=== PATIENT | female | born 1990 | race Caucasian/White ===

== ENCOUNTER 2016-05-12 13:39 | Inpatient (IN) | payer BC ==
[2016-05-12] MEDS ORDERED: Sodium Chloride 0.9% 10 ML Syringe IV PRN (14:12)
[2016-05-12] MEDS ORDERED: Penicillin G Potassium 5 MILLUNITS in Sodium Chloride 0.9% 100 ML IV ONE (14:15)
[2016-05-12] MEDS ORDERED: fentaNYL 100 MCG/2 ML SDV IVPUSH PRN (14:30)
[2016-05-12] MEDS ORDERED: Acetaminophen 325 MG Tab PO PRN (14:30)
[2016-05-12] MEDS ORDERED: Oxytocin 10 Units/1 ML SDV ONE (14:30)
[2016-05-12] MEDS ORDERED: Sodium Chloride 0.9% 10 ML Syringe FLUSH PRN (14:30)
[2016-05-12] MEDS ORDERED: Lidocaine 1% 50 ML MDV ONE (14:30)
[2016-05-12] MEDS ORDERED: Naloxone 0.4 MG/ML SDV ONE (14:30)
[2016-05-12] MEDS ORDERED: Ondansetron 4 MG Tab.DIS PO PRN (14:30)
--- NOTE | 2016-05-12 14:39 | PCM.LDHP ---
L&D History of Present Illness - General Date of Service: 05/12/16 (labor) Admit Problem/Dx: Patient Status Order with Admit Dx/Problem 05/12/16 14:30 Patient Status [ADT] Routine Admission Diagnosis/Problem Admission Diagnosis/Problem Source of Information: Patient History Limitations: Reports: No limitations - History of Present Illness Introduction:: This 25 year old presented with contractions. She is 38 5/7 weeks gestation with adequate care. [place] 05/21/16. Contractions were on and off all morning at 1230 this afternoon the contractions changed to fast and strong. She is GBS positive and knew she needed to come in for antibiotics. 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: : 2 Para: 1 LMP (Approximate): (CHIRAG 05/21/16) - Infectious Disease History Infectious Disease History: Reports: Chicken pox Social & Family History - Family History Oncologic: Reports: Breast - Tobacco Use Smoking Status *Q: Never Smoker Second Hand Smoke Exposure: No - Caffeine Use Caffeine Use: Reports: Soda Caffeine Use Comment: 1 soda per day - Recreational Drug Use Recreational Drug Use: No H&P Review of Systems - Review of Systems: Review Of Systems: See Below General: Reports: no symptoms HEENT: Reports: no symptoms Pulmonary: Reports: No Symptoms Cardiovascular: Reports: no symptoms Gastrointestinal: Reports: No symptoms Genitourinary: Reports: no symptoms Musculoskeletal: Reports: no symptoms Skin: Reports: no symptoms Psychiatric: Reports: no symptoms Neurological: Reports: No Symptoms Hematologic/Lymphatic: Reports: no symptoms Immunologic: Reports: no symptoms L&D Exam - Exam Exam: See Below - Vital Signs Weight: 156 lb - OB Specific Contraction Intensity: Strong movement: active heart tones: present heart tones per min: 145 Heart Rate (FHR) Variability: Moderate (6-25 bmp) Presentation: Vertex Estimated Weight: 7-8 pounds - Marie Score Marie Score Cervix Position: Anterior Marie Score Consistency: Soft Marie Score Effacement: >80% Marie Score Dilation: > 5 cm Marie Score 's Station: +1, +2 Marie Score Total: 13 - Exam General: alert, oriented HEENT: PERRLA, Mucosa moist & pink, Posterior pharynx clear Neck: supple Lungs: Clear to auscultation, Normal respiratory effort Cardiovascular: regular rate, regular rhythm Abdomen: normal bowel sounds Rectal Exam: Normal exam Genitourinary: Normal external exam, Cervical dilitation, Enlarged uterus Back Exam: normal inspection, full range of motion Extremities: normal inspection Skin: warm, dry Neurological: cranial nerves intact, reflexes equal bilateral Psychiatric: alert, normal affect, normal mood - Patient Data Lab Results last 24 hrs: Laboratory Results - last 24 hr 05/12/16 05/12/16 Range/Units 13:45 13:46 Urine Color Yellow Urine Appearance Clear Urine pH 6.0 (4.5-8.0) Ur Specific [place] 1.020 (1.008-1.030) Urine Protein Negative (NEGATIVE) mg/dL Urine Glucose (UA) Normal (NEGATIVE) mg/dL Urine Ketones Negative (NEGATIVE) mg/dL Urine Occult Blood Negative (NEGATIVE) Urine Nitrite Negative (NEGATIVE) Urine Bilirubin Negative (NEGATIVE) Urine Urobilinogen Normal (NORMAL) mg/dL Ur Leukocyte Esterase Negative (NEGATIVE) Urine RBC Not seen (0-5) Urine WBC 0-5 (0-5) Ur Epithelial Cells Few Amorphous Sediment Not seen Urine Bacteria Moderate Urine Mucus Few Urine Opiates Screen Negative (NEGATIVE) Ur Oxycodone Screen Negative (NEGATIVE) Urine Methadone Screen Negative (NEGATIVE) Ur Propoxyphene Screen Negative (NEGATIVE) Ur Barbiturates Screen Negative (NEGATIVE) Ur Tricyclics Screen Negative (NEGATIVE) Ur Phencyclidine Scrn Negative (NEGATIVE) Ur Amphetamine Screen Negative (NEGATIVE) U Methamphetamines Scrn Negative (NEGATIVE) Urine MDMA Screen Negative (NEGATIVE) U Benzodiazepines Scrn Negative (NEGATIVE) U Cocaine Metab Screen Negative (NEGATIVE) U Marijuana (THC) Screen Negative (NEGATIVE) - Problem List (1) Active labor at term SNOMED Code(s): 34645768 ICD Code: [id number] - Status: Acute Current Visit: Yes (2) SNOMED Code(s): 29677389 ICD Code: Z33.1 - STATE, INCIDENTAL Status: Acute Current Visit : Yes Qualifiers: Weeks of gestation: 38 weeks Qualified Code(s): Z3A.38 - 38 weeks gestation of Problem List Initiated/Reviewed/Updated: Yes Orders Last 24hrs: Active Orders 24 hr Category Date Time Status Patient Status [ADT] Routine ADT 05/12/16 14:30 Ordered Antiembolic Devices [RC] .Routine Care 05/12/16 14:31 Ordered Communication Order [RC] ASDIRECTED Care 05/12/16 14:30 Ordered Heart Tones [RC] PER UNIT ROUTINE Care 05/12/16 14:30 Ordered Notify Provider Vital Signs [RC] PRN Care 05/12/16 14:30 Ordered Notify Provider [RC] PRN Care 05/12/16 14:30 Ordered OB Check [OM.PC] Click to Edit Care 05/12/16 13:45 Ordered VTE/DVT Education [RC] Click to Edit Care 05/12/16 14:31 Ordered Vital Signs [RC] PER UNIT ROUTINE Care 05/12/16 14:30 Ordered CBC W/O DIFF,HEMOGRAM [HEME] Urgent Lab 05/12/16 14:30 Ordered Acetaminophen [Tylenol] Med 05/12/16 14:30 Ordered 650 mg PO Q4H PRN Ondansetron [Zofran ODT] Med 05/12/16 14:30 Ordered 4 mg PO Q4H PRN Penicillin G Potassium [Pfizerpen] 5 millunits Med 05/12/16 14:15 Active Sodium Chloride 0.9% [Normal Saline] 100 ml IV ONETIME Sodium Chloride 0.9% [Saline Flush] Med 05/12/16 14:30 Ordered 10 ml FLUSH ASDIRECTED PRN Sodium Chloride 0.9% [Saline Flush] Med 05/12/16 14:12 Active 10 ml IV ASDIRECTED PRN fentaNYL [Sublimaze] Med 05/12/16 14:30 Ordered 100 mcg IVPUSH Q1H PRN DVT/VTE Prophylaxis Reflex [OM.PC] Routine Oth 05/12/16 14:30 Ordered Saline Lock Insert [OM.PC] Routine Oth 05/12/16 14:30 Ordered Resuscitation Status Routine Resus Stat 05/12/16 14:30 Ordered Medication Orders Penicillin G Potassium 5 (millunits/ Sodium Chloride) 100 mls @ 100 mls/hr IV ONETIME ONE Stop: 05/12/16 15:14 Sodium Chloride (Saline Flush) 10 ml IV ASDIRECTED PRN PRN Reason: LINE MAINTENCE Assessment/Plan Comment:: 25 yr old 38 5/7 weeks, active labor, gbs pos, antibiotics infusing Plan for vaginal delivery soon
[2016-05-12] MEDS ORDERED: Lidocaine 1% 50 ML MDV INJECT ONE (14:42)
[2016-05-12] MEDS ORDERED: Lactated Ringers 1,000 ML IV SCH (14:45)
[2016-05-12] MEDS ORDERED: fentaNYL 100 MCG/2 ML SDV ONE (14:50)
[2016-05-12] MEDS ORDERED: Witch Hazel Medicated Pads 100/Jar TOP PRN (15:41)
[2016-05-12] MEDS ORDERED: Acetaminophen/oxyCODONE 325-5 MG Tab PO PRN (15:41)
[2016-05-12] MEDS ORDERED: Ibuprofen 600 MG Tab PO PRN (15:41)
[2016-05-12] MEDS ORDERED: Benzocaine 20% Top Spray 56 GM Bottle TOP PRN (15:41)
--- NOTE | 2016-05-12 15:54 | PCM.DEL ---
L & D Note - General Info Date of Service: 05/12/16 (delivery) Mother's Due Date: 05/21/16 - Delivery Note Labor: spontaneous Delivery Outcome: Livebirth Infant Delivery Method: Spontaneous Vaginal Delivery Presentation: Left Occiput Anterior (DOLLY) Nuchal cord: none Anesthesia Type: None Amniotic Fluid Description: Meconium stained Episiotomy Type: None Laceration: none Placenta: intact, spontaneous Cord: 3 vessels Estimated blood loss: 100 Resuscitation needed: No : bulb syringe, stimulated, warmed, warmer used Provider: Margaret Olson Score 1 min: 9 Score 5 min: 9 Score 10 min: 9 Second Stage Interventions: Reports: Encouragement Given, Pushing Effectively, Pushing, McRobert's Position Delivery Comments (Free Text/Narrative):: This 25 year old at 38 5/7 weeks gestation. Delivered a viable female infant over an intact perineum via in DOLLY position. Meconium was present. New born was vigorous at and cried spontaneously. She was placed on mother 's abdomen. where she was dried and stimulated. Mother and nose were bulb suctioned. She weights 6-13, Ht 19.8, Apgars 9,9,9. Three vessel cord. No nuchal cord. Placenta was expressed spontaneously intact, the active management of the third stage was used. No lacerations of the cervix, vagina. rectum or perineum. EBL 100cc Mother and baby to post and nursery in stable condition. Bottle baby. First stage 3280-7386 Second stage 4555-8272 Third stage 7960-7896 - General Info Date of Service: 05/12/16 (delivery) Admission Dx/Problem (Free Text): Patient Status Order with Admit Dx/Problem 05/12/16 14:30 Patient Status [ADT] Routine Admission Diagnosis/Problem Admission Diagnosis/Problem Functional Status: Reports: pain controlled - Review of Systems General: Reports: No Symptoms HEENT: Reports: no symptoms Pulmonary: Reports: no symptoms Cardiovascular: Reports: No Symptoms Gastrointestinal: Reports: No symptoms Genitourinary: Reports: no symptoms Musculoskeletal: Reports: no symptoms Skin: Reports: no symptoms Neurological: Reports: No Symptoms Psychiatric: Reports: no symptoms - Patient Data Vitals - most recent: Last Vital Signs Temp 97.2 F 05/12/16 14:20 Pulse 83 05/12/16 14:20 Resp 20 05/12/16 14:20 BP 97/68 05/12/16 14:20 Pulse Ox 98 05/12/16 14:20 Weight - most recent: 156 lb Lab Results last 24 hrs: Laboratory Results - last 24 hr 05/12/16 05/12/16 05/12/16 Range/Units 13:45 13:46 14:30 WBC 11.5 H (4.5-11.0) K/uL RBC 4.02 (3.30-5.50) M/uL Hgb 12.8 (12.0-15.0) g/dL Hct 37.9 (36.0-48.0) % MCV 94 (80-98) fL MCH 32 H (27-31) pg MCHC 34 (32-36) % Plt Count 202 (150-400) K/uL Urine Color Yellow Urine Appearance Clear Urine pH 6.0 (4.5-8.0) Ur Specific [place] 1.020 (1.008-1.030) Urine Protein Negative (NEGATIVE) mg/dL Urine Glucose (UA) Normal (NEGATIVE) mg/dL Urine Ketones Negative (NEGATIVE) mg/dL Urine Occult Blood Negative (NEGATIVE) Urine Nitrite Negative (NEGATIVE) Urine Bilirubin Negative (NEGATIVE) Urine Urobilinogen Normal (NORMAL) mg/dL Ur Leukocyte Esterase Negative (NEGATIVE) Urine RBC Not seen (0-5) Urine WBC 0-5 (0-5) Ur Epithelial Cells Few Amorphous Sediment Not seen Urine Bacteria Moderate Urine Mucus Few Urine Opiates Screen Negative (NEGATIVE) Ur Oxycodone Screen Negative (NEGATIVE) Urine Methadone Screen Negative (NEGATIVE) Ur Propoxyphene Screen Negative (NEGATIVE) Ur Barbiturates Screen Negative (NEGATIVE) Ur Tricyclics Screen Negative (NEGATIVE) Ur Phencyclidine Scrn Negative (NEGATIVE) Ur Amphetamine Screen Negative (NEGATIVE) U Methamphetamines Scrn Negative (NEGATIVE) Urine MDMA Screen Negative (NEGATIVE) U Benzodiazepines Scrn Negative (NEGATIVE) U Cocaine Metab Screen Negative (NEGATIVE) U Marijuana (THC) Screen Negative (NEGATIVE) Med Orders - Current: Current Medications Acetaminophen (Tylenol) 650 mg PO Q4H PRN PRN Reason: Pain (Mild 1-3) and fever Fentanyl (Sublimaze) 100 mcg IVPUSH Q1H PRN PRN Reason: Pain (moderate 4-6) Lactated Ringer's (Ringers, Lactated) 1,000 mls @ 125 mls/hr IV ASDIRECTED SUMMER Oxytocin/Sodium Chloride (Pitocin In Ns 20 Units/1,000 Ml) 20 unit in 1,000 mls @ 6 mls/hr IV TITRATE SUMMER; 2 MUNITS/MIN PRN Reason: Protocol Penicillin G Potassium 2.5 (millunits/ Sodium Chloride) 50 mls @ 100 mls/hr IV Q4H SUMMER Ondansetron HCl (Zofran Odt) 4 mg PO Q4H PRN PRN Reason: Nausea/Vomiting Sodium Chloride (Saline Flush) 10 ml IV ASDIRECTED PRN PRN Reason: LINE MAINTENCE Discontinued Medications Fentanyl (Sublimaze) Confirm Administered Dose 100 mcg .ROUTE .STK-MED ONE Stop: 05/12/16 14:51 Penicillin G Potassium 5 (millunits/ Sodium Chloride) 100 mls @ 100 mls/hr IV ONETIME ONE Stop: 05/12/16 15:14 Last Admin: 05/12/16 14:40 Dose: 100 mls/hr Lidocaine HCl (Xylocaine 1%) Confirm Administered Dose 100 ml .ROUTE .STK-MED ONE Stop: 05/12/16 14:31 Lidocaine HCl (Xylocaine 1%) 50 ml INJECT NOW ONE Stop: 05/12/16 14:43 Naloxone HCl (Narcan) Confirm Administered Dose 0.4 mg .ROUTE .STK-MED ONE Stop: 05/12/16 14:31 Oxytocin (Pitocin) Confirm Administered Dose 10 unit .ROUTE .STK-MED ONE Stop: 05/12/16 14:31 - Exam General: alert, oriented HEENT: Pupils equal, Pupils reactive, EOMI, Mucous membr. moist/pink Neck: supple Lungs: Clear to auscultation, Normal respiratory effort Cardiovascular: Regular Rate, Regular Rhythm Abdomen: bowel sounds present, soft, no tenderness, no distension (Female) Exam: Normal external exam, Normal speculum exam, Normal bimanual exam, Enlarged uterus, Vaginal bleeding Back Exam: normal inspection, full range of motion Extremities: no edema Skin: warm, dry, intact Wound/Incisions: healing well Neurological: no new focal deficit Psy/Mental Status: alert, normal affect, normal mood - Problem List & Annotations (1) Active labor at term SNOMED Code(s): 94595528 Code(s): BQY7440 - Status: Acute Current Visit: Yes (2) SNOMED Code(s): 55009146 Code(s): Z33.1 - STATE, INCIDENTAL Status: Acute Current Visit: Yes Qualifiers: Weeks of gestation: 38 weeks Qualified Code(s): Z3A.38 - 38 weeks gestation of (3) Normal labor and delivery SNOMED Code(s): 53317074, 118192687 Code(s): O80 - ENCOUNTER FOR FULL-TERM UNCOMPLICATED DELIVERY Status: Acute Current Visit: Yes (4) GBS (group B streptococcus) infection SNOMED Code(s): 198605732 Code(s): A49.1 - STREPTOCOCCAL INFECTION, UNSPECIFIED SITE Status: Acute Current Visit: Yes (5) Meconium in amniotic fluid SNOMED Code(s): 1964955 Code(s): P96.83 - MECONIUM STAINING Status: Acute Current Visit: Yes - Problem List Review Problem List Initiated/Reviewed/Updated: Yes - My Orders Last 24 Hours: My Active Orders 05/12/16 13:45 OB Check [OM.PC] Click to Edit 05/12/16 14:12 Sodium Chloride 0.9% [Saline Flush] 10 ml IV ASDIRECTED PRN 05/12/16 14:30 Communication Order [RC] ASDIRECTED Heart Tones [RC] PER UNIT ROUTINE Notify Provider Vital Signs [RC] PRN Notify Provider [RC] PRN Vital Signs [RC] PER UNIT ROUTINE Acetaminophen [Tylenol] 650 mg PO Q4H PRN Ondansetron [Zofran ODT] 4 mg PO Q4H PRN fentaNYL [Sublimaze] 100 mcg IVPUSH Q1H PRN DVT/VTE Prophylaxis Reflex [OM.PC] Routine Saline Lock Insert [OM.PC] Routine Resuscitation Status Routine 05/12/16 14:31 Antiembolic Devices [RC] .Routine VTE/DVT Education [RC] Click to Edit 05/12/16 14:45 Lactated Ringers [Ringers, Lactated] 1,000 ml IV ASDIRECTED Oxytocin/Normal Saline [Pitocin in NS 20 Units/1,000 ML] 20 unit in 1,000 ml IV TITRATE 05/12/16 15:41 Patient Status [ADT] Routine May Shower [RC] ASDIRECTED Up ad Kaylene [RC] ASDIRECTED Vital Signs [RC] PFP RHIG WORKUP, [BBK] Routine Acetaminophen/oxyCODONE [Percocet 325-5 MG] 1 tab PO Q4H PRN Benzocaine [[id number]-Mgrbbrm 20% [place]] See Dose Instructions TOP Q4H PRN Ibuprofen [Motrin] 600 mg PO Q6H PRN Witch Kathy [Tucks] 1 pad TOP ASDIRECTED PRN Assess Lochia [WOMSER] Per Unit Routine Assess Uterine Involution [WOMSER] Per Unit Routine 05/12/16 15:43 Ice Therapy [OM.PC] Per Unit Routine Perineal Care [OM.PC] Per Unit Routine Peripheral IV Discontinue [OM.PC] Routine Sitz Bath [OM.PC] Per Unit Routine 05/12/16 18:00 Penicillin G Potassium [Pfizerpen] 2.5 millunits Sodium Chloride 0.9% [Normal Saline] 50 ml IV Q4H 05/12/16 Dinner Regular Diet [DIET] 05/13/16 05:11 CBC WITH AUTO DIFF [HEME] AM - Assessment Assessment:: 05/12/16 25 year old G2 now P2 without complications Mecomium present in fluid, baby vigorous at GBS positive, treated Formula feeding - Plan Plan:: 25 yr old 38 5/7 weeks, active labor, gbs pos, antibiotics infusing Plan for vaginal delivery soon 05/12/16 Routine cares 48 hour stay due to GBS positive status
[2016-05-12] MEDS ORDERED: Penicillin G Potassium 2.5 MILLUNITS in Sodium Chloride 0.9% 50 ML IV SCH (18:00)
--- NOTE | 2016-05-13 09:47 | PCM.PNPP ---
- General Info Date of Service: 05/13/16 Admission Dx/Problem (Free Text): Patient Status Order with Admit Dx/Problem 05/12/16 14:30 Patient Status [ADT] Routine Admission Diagnosis/Problem Admission Diagnosis/Problem Functional Status: Reports: pain controlled - Review of Systems General: Reports: No Symptoms HEENT: Reports: no symptoms Pulmonary: Reports: no symptoms Cardiovascular: Reports: No Symptoms Gastrointestinal: Reports: No symptoms Genitourinary: Reports: no symptoms Musculoskeletal: Reports: no symptoms Skin: Reports: no symptoms Neurological: Reports: No Symptoms Psychiatric: Reports: no symptoms - General Info Date of Service: 05/13/16 (PPD 1) - Patient Data Vital Signs - most recent: Last Vital Signs Temp 97.7 F 05/13/16 08:31 Pulse 82 05/13/16 08:31 Resp 20 05/13/16 08:31 BP 82/52 L 05/13/16 03:18 Pulse Ox 99 05/13/16 08:31 Weight - most recent: 156 lb I&O - last 24 hours: Intake & Output 05/12/16 05/13/16 05/13/16 22:59 06:59 14:59 Intake Total 1000 Balance 1000 Lab Results - last 24 hrs: Laboratory Results - last 24 hr 05/12/16 05/12/16 05/12/16 Range/Units 13:45 13:46 14:30 WBC 11.5 H (4.5-11.0) K/uL RBC 4.02 (3.30-5.50) M/uL Hgb 12.8 (12.0-15.0) g/dL Hct 37.9 (36.0-48.0) % MCV 94 (80-98) fL MCH 32 H (27-31) pg MCHC 34 (32-36) % Plt Count 202 (150-400) K/uL Neut % (Auto) (36-66) % Lymph % (Auto) (24-44) % [place] % (Auto) (2-6) % Eos % (Auto) (2-4) % Baso % (Auto) (0-1) % Urine Color Yellow Urine Appearance Clear Urine pH 6.0 (4.5-8.0) Ur Specific [place] 1.020 (1.008-1.030) Urine Protein Negative (NEGATIVE) mg/dL Urine Glucose (UA) Normal (NEGATIVE) mg/dL Urine Ketones Negative (NEGATIVE) mg/dL Urine Occult Blood Negative (NEGATIVE) Urine Nitrite Negative (NEGATIVE) Urine Bilirubin Negative (NEGATIVE) Urine Urobilinogen Normal (NORMAL) mg/dL Ur Leukocyte Esterase Negative (NEGATIVE) Urine RBC Not seen (0-5) Urine WBC 0-5 (0-5) Ur Epithelial Cells Few Amorphous Sediment Not seen Urine Bacteria Moderate Urine Mucus Few Urine Opiates Screen Negative (NEGATIVE) Ur Oxycodone Screen Negative (NEGATIVE) Urine Methadone Screen Negative (NEGATIVE) Ur Propoxyphene Screen Negative (NEGATIVE) Ur Barbiturates Screen Negative (NEGATIVE) Ur Tricyclics Screen Negative (NEGATIVE) Ur Phencyclidine Scrn Negative (NEGATIVE) Ur Amphetamine Screen Negative (NEGATIVE) U Methamphetamines Scrn Negative (NEGATIVE) Urine MDMA Screen Negative (NEGATIVE) U Benzodiazepines Scrn Negative (NEGATIVE) U Cocaine Metab Screen Negative (NEGATIVE) U Marijuana (THC) Screen Negative (NEGATIVE) 05/13/16 Range/Units 05:39 WBC 13.6 H (4.5-11.0) K/uL RBC 3.82 (3.30-5.50) M/uL Hgb 12.3 (12.0-15.0) g/dL Hct 36.7 (36.0-48.0) % MCV 96 (80-98) fL MCH 32 H (27-31) pg MCHC 34 (32-36) % Plt Count 182 (150-400) K/uL Neut % (Auto) 65 (36-66) % Lymph % (Auto) 24 (24-44) % [place] % (Auto) 10 H (2-6) % Eos % (Auto) 1 L (2-4) % Baso % (Auto) 0 (0-1) % Urine Color Urine Appearance Urine pH (4.5-8.0) Ur Specific [place] (1.008-1.030) Urine Protein (NEGATIVE) mg/dL Urine Glucose (UA) (NEGATIVE) mg/dL Urine Ketones (NEGATIVE) mg/dL Urine Occult Blood (NEGATIVE) Urine Nitrite (NEGATIVE) Urine Bilirubin (NEGATIVE) Urine Urobilinogen (NORMAL) mg/dL Ur Leukocyte Esterase (NEGATIVE) Urine RBC (0-5) Urine WBC (0-5) Ur Epithelial Cells Amorphous Sediment Urine Bacteria Urine Mucus Urine Opiates Screen (NEGATIVE) Ur Oxycodone Screen (NEGATIVE) Urine Methadone Screen (NEGATIVE) Ur Propoxyphene Screen (NEGATIVE) Ur Barbiturates Screen (NEGATIVE) Ur Tricyclics Screen (NEGATIVE) Ur Phencyclidine Scrn (NEGATIVE) Ur Amphetamine Screen (NEGATIVE) U Methamphetamines Scrn (NEGATIVE) Urine MDMA Screen (NEGATIVE) U Benzodiazepines Scrn (NEGATIVE) U Cocaine Metab Screen (NEGATIVE) U Marijuana (THC) Screen (NEGATIVE) Med Orders - Current: Current Medications Acetaminophen (Tylenol) 650 mg PO Q4H PRN PRN Reason: Pain (Mild 1-3) and fever Benzocaine (Ddlo-D-Borbnnp 20% [place]) 0 gm TOP Q4H PRN PRN Reason: Perineal Comfort Measure Docusate Sodium (Colace) 100 mg PO DAILY PRN PRN Reason: Constipation Lactated Ringer's (Ringers, Lactated) 1,000 mls @ 125 mls/hr IV ASDIRECTED SUMMER Ibuprofen (Motrin) 600 mg PO Q6H PRN PRN Reason: mild pain or fever Last Admin: 05/12/16 19:20 Dose: 600 mg Ondansetron HCl (Zofran Odt) 4 mg PO Q4H PRN PRN Reason: Nausea/Vomiting Oxycodone/Acetaminophen (Percocet 325-5 Mg) 1 tab PO Q4H PRN PRN Reason: Pain (moderate 4-6) Sodium Chloride (Saline Flush) 10 ml IV ASDIRECTED PRN PRN Reason: LINE MAINTENCE Zehra Kathy (Tucks) 1 pad TOP ASDIRECTED PRN PRN Reason: Hemorrhoids Discontinued Medications Fentanyl (Sublimaze) 100 mcg IVPUSH Q1H PRN PRN Reason: Pain (moderate 4-6) Fentanyl (Sublimaze) Confirm Administered Dose 100 mcg .ROUTE .STK-MED ONE Stop: 05/12/16 14:51 Last Admin: 05/12/16 17:34 Dose: 100 mcg Penicillin G Potassium 5 (millunits/ Sodium Chloride) 100 mls @ 100 mls/hr IV ONETIME ONE Stop: 05/12/16 15:14 Last Admin: 05/12/16 14:40 Dose: 100 mls/hr Oxytocin/Sodium Chloride (Pitocin In Ns 20 Units/1,000 Ml) 20 unit in 1,000 mls @ 6 mls/hr IV TITRATE SUMMER; 2 MUNITS/MIN PRN Reason: Protocol Last Admin: 05/12/16 18:01 Dose: 2 munits/min, 6 mls/hr Penicillin G Potassium 2.5 (millunits/ Sodium Chloride) 50 mls @ 100 mls/hr IV Q4H SUMMER Last Admin: 05/12/16 20:24 Dose: Not Given Lidocaine HCl (Xylocaine 1%) Confirm Administered Dose 100 ml .ROUTE .STK-MED ONE Stop: 05/12/16 14:31 Last Admin: 05/12/16 17:29 Dose: Not Given Lidocaine HCl (Xylocaine 1%) 50 ml INJECT NOW ONE Stop: 05/12/16 14:43 Last Admin: 05/12/16 17:29 Dose: Not Given Naloxone HCl (Narcan) Confirm Administered Dose 0.4 mg .ROUTE .STK-MED ONE Stop: 05/12/16 14:31 Last Admin: 05/12/16 17:29 Dose: Not Given Oxytocin (Pitocin) Confirm Administered Dose 10 unit .ROUTE .STK-MED ONE Stop: 05/12/16 14:31 Last Admin: 05/12/16 17:29 Dose: Not Given - Infant Interaction Infant Disposition, : [place] in Room with Family Interaction: Holding Feeding: Bottle Fed Infant Support Person: - Recovery Exam Fundal Tone: Firm Fundal Level: 2 Fingerbreadths Below Umbilicus Fundal Placement: Midline Lochia Amount: Small Lochia Color: Rubra/Red Perineum Description: Intact, Minimal Bruising/Swelling Episiotomy/Laceration: None Bladder Status: Voiding Urinary Elimination: Voided - Exam General: alert, oriented HEENT: Pupils equal Neck: supple Lungs: Clear to auscultation, Normal respiratory effort Cardiovascular: Regular Rate, Regular Rhythm Abdomen: bowel sounds present, soft, no tenderness, no distension Extremities: no edema Skin: warm, dry, intact Wound/Incisions: healing well Neurological: no new focal deficit Psy/Mental Status: alert, normal affect, normal mood - Problem List & Annotations (1) Active labor at term SNOMED Code(s): 35287251 Code(s): VJD4159 - Status: Acute Current Visit: Yes (2) SNOMED Code(s): 87254634 Code(s): Z33.1 - STATE, INCIDENTAL Status: Acute Current Visit: Yes Qualifiers: Weeks of gestation: 38 weeks Qualified Code(s): Z3A.38 - 38 weeks gestation of (3) Normal labor and delivery SNOMED Code(s): 37335176, 434032954 Code(s): O80 - ENCOUNTER FOR FULL-TERM UNCOMPLICATED DELIVERY Status: Acute Current Visit: Yes (4) GBS (group B streptococcus) infection SNOMED Code(s): 363854278 Code(s): A49.1 - STREPTOCOCCAL INFECTION, UNSPECIFIED SITE Status: Acute Current Visit: Yes (5) Meconium in amniotic fluid SNOMED Code(s): 2842505 Code(s): P96.83 - MECONIUM STAINING Status: Acute Current Visit: Yes - Problem List Review Problem List Initiated/Reviewed/Updated: Yes - My Orders Last 24 Hours: My Active Orders 05/12/16 13:45 OB Check [OM.PC] Click to Edit 05/12/16 14:12 Sodium Chloride 0.9% [Saline Flush] 10 ml IV ASDIRECTED PRN 05/12/16 14:30 Communication Order [RC] ASDIRECTED Notify Provider Vital Signs [RC] PRN Notify Provider [RC] PRN Vital Signs [RC] PER UNIT ROUTINE Acetaminophen [Tylenol] 650 mg PO Q4H PRN Ondansetron [Zofran ODT] 4 mg PO Q4H PRN DVT/VTE Prophylaxis Reflex [OM.PC] Routine Saline Lock Insert [OM.PC] Routine Resuscitation Status Routine 05/12/16 14:31 Antiembolic Devices [RC] .Routine VTE/DVT Education [RC] Click to Edit 05/12/16 14:45 Lactated Ringers [Ringers, Lactated] 1,000 ml IV ASDIRECTED 05/12/16 15:41 Patient Status [ADT] Routine May Shower [RC] ASDIRECTED Up ad Kaylene [RC] ASDIRECTED Acetaminophen/oxyCODONE [Percocet 325-5 MG] 1 tab PO Q4H PRN Benzocaine [Rotq-H-Afgwpii 20% [place]] See Dose Instructions TOP Q4H PRN Ibuprofen [Motrin] 600 mg PO Q6H PRN Witch Kathy [Tucks] 1 pad TOP ASDIRECTED PRN Assess Lochia [WOMSER] Per Unit Routine Assess Uterine Involution [WOMSER] Per Unit Routine 05/12/16 15:43 Ice Therapy [OM.PC] Per Unit Routine Perineal Care [OM.PC] Per Unit Routine Peripheral IV Discontinue [OM.PC] Routine Sitz Bath [OM.PC] Per Unit Routine 05/12/16 Dinner Regular Diet [DIET] 05/13/16 09:33 Docusate Sodium [Colace] 100 mg PO DAILY PRN - Assessment Assessment:: 05/12/16 25 year old G2 now P2 without complications Mecomium present in fluid, baby vigorous at GBS positive, treated Formula feeding 05/13/16 Doing well, bleeding light, mood good, some mild cramping HGB 12.3 No fever or elevated WBC - Plan Plan:: 25 yr old 38 5/7 weeks, active labor, gbs pos, antibiotics infusing Plan for vaginal delivery soon 05/12/16 Routine cares 48 hour stay due to GBS positive status 05/13/16 Routine cares Home in am, due to GBS status
[2016-05-13] MEDS: Docusate Sodium 100 MG Cap PO PRN (10:07)
[2016-05-14] MEDS: Docusate Sodium 100 MG Cap PO PRN (03:39)
--- NOTE | 2016-05-14 08:17 | PCM.PNPP ---
- General Info Date of Service: 05/14/16 (PPD 2 D/C) Admission Dx/Problem (Free Text): Patient Status Order with Admit Dx/Problem 05/12/16 14:30 Patient Status [ADT] Routine Admission Diagnosis/Problem Admission Diagnosis/Problem Functional Status: Reports: pain controlled - Review of Systems General: Reports: No Symptoms HEENT: Reports: no symptoms Pulmonary: Reports: no symptoms Cardiovascular: Reports: No Symptoms Gastrointestinal: Reports: No symptoms Genitourinary: Reports: no symptoms Musculoskeletal: Reports: no symptoms Skin: Reports: no symptoms Neurological: Reports: No Symptoms Psychiatric: Reports: no symptoms - General Info Date of Service: 05/14/16 - Patient Data Vital Signs - most recent: Last Vital Signs Temp 96.7 F 05/14/16 03:42 Pulse 65 05/14/16 03:42 Resp 14 05/14/16 03:42 BP 96/65 05/14/16 03:42 Pulse Ox 95 05/14/16 03:42 Weight - most recent: 156 lb Med Orders - Current: Current Medications Acetaminophen (Tylenol) 650 mg PO Q4H PRN PRN Reason: Pain (Mild 1-3) and fever Benzocaine (Hvfc-D-Nocride 20% [place]) 0 gm TOP Q4H PRN PRN Reason: Perineal Comfort Measure Docusate Sodium (Colace) 100 mg PO DAILY PRN PRN Reason: Constipation Last Admin: 05/14/16 03:39 Dose: 100 mg Lactated Ringer's (Ringers, Lactated) 1,000 mls @ 125 mls/hr IV ASDIRECTED SUMMER Ibuprofen (Motrin) 600 mg PO Q6H PRN PRN Reason: mild pain or fever Last Admin: 05/12/16 19:20 Dose: 600 mg Ondansetron HCl (Zofran Odt) 4 mg PO Q4H PRN PRN Reason: Nausea/Vomiting Oxycodone/Acetaminophen (Percocet 325-5 Mg) 1 tab PO Q4H PRN PRN Reason: Pain (moderate 4-6) Sodium Chloride (Saline Flush) 10 ml IV ASDIRECTED PRN PRN Reason: LINE MAINTENCE Witch Kathy (Tucks) 1 pad TOP ASDIRECTED PRN PRN Reason: Hemorrhoids Discontinued Medications Fentanyl (Sublimaze) 100 mcg IVPUSH Q1H PRN PRN Reason: Pain (moderate 4-6) Fentanyl (Sublimaze) Confirm Administered Dose 100 mcg .ROUTE .STK-MED ONE Stop: 05/12/16 14:51 Last Admin: 05/12/16 17:34 Dose: 100 mcg Penicillin G Potassium 5 (millunits/ Sodium Chloride) 100 mls @ 100 mls/hr IV ONETIME ONE Stop: 05/12/16 15:14 Last Admin: 05/12/16 14:40 Dose: 100 mls/hr Oxytocin/Sodium Chloride (Pitocin In Ns 20 Units/1,000 Ml) 20 unit in 1,000 mls @ 6 mls/hr IV TITRATE SUMMER; 2 MUNITS/MIN PRN Reason: Protocol Last Admin: 05/12/16 18:01 Dose: 2 munits/min, 6 mls/hr Penicillin G Potassium 2.5 (millunits/ Sodium Chloride) 50 mls @ 100 mls/hr IV Q4H SUMMER Last Admin: 05/12/16 20:24 Dose: Not Given Lidocaine HCl (Xylocaine 1%) Confirm Administered Dose 100 ml .ROUTE .STK-MED ONE Stop: 05/12/16 14:31 Last Admin: 05/12/16 17:29 Dose: Not Given Lidocaine HCl (Xylocaine 1%) 50 ml INJECT NOW ONE Stop: 05/12/16 14:43 Last Admin: 05/12/16 17:29 Dose: Not Given Naloxone HCl (Narcan) Confirm Administered Dose 0.4 mg .ROUTE .STK-MED ONE Stop: 05/12/16 14:31 Last Admin: 05/12/16 17:29 Dose: Not Given Oxytocin (Pitocin) Confirm Administered Dose 10 unit .ROUTE .STK-MED ONE Stop: 05/12/16 14:31 Last Admin: 05/12/16 17:29 Dose: Not Given - Interaction Disposition, : [place] in Room with Family Interaction: Holding Feeding: Bottle Fed Support Person: - Recovery Exam Fundal Tone: Firm Fundal Level: 2 Fingerbreadths Below Umbilicus Fundal Placement: Midline Lochia Amount: Small Lochia Color: Rubra/Red Perineum Description: Intact, Minimal Bruising/Swelling Episiotomy/Laceration: None Bladder Status: Voiding Urinary Elimination: Voided - Exam General: alert, oriented HEENT: Pupils equal Neck: supple Lungs: Clear to auscultation, Normal respiratory effort Cardiovascular: Regular Rate, Regular Rhythm Abdomen: bowel sounds present, soft, no tenderness, no distension Extremities: no edema Skin: warm, dry, intact Wound/Incisions: healing well Neurological: no new focal deficit Psy/Mental Status: alert, normal affect, normal mood - Problem List & Annotations (1) Active labor at term SNOMED Code(s): 28503731 Code(s): DMS2855 - Status: Acute Current Visit: Yes (2) SNOMED Code(s): 45719846 Code(s): Z33.1 - STATE, INCIDENTAL Status: Acute Current Visit: Yes Qualifiers: Weeks of gestation: 38 weeks Qualified Code(s): Z3A.38 - 38 weeks gestation of (3) Normal labor and delivery SNOMED Code(s): 09262905, 631959912 Code(s): O80 - ENCOUNTER FOR FULL-TERM UNCOMPLICATED DELIVERY Status: Acute Current Visit: Yes (4) GBS (group B streptococcus) infection SNOMED Code(s): 630289402 Code(s): A49.1 - STREPTOCOCCAL INFECTION, UNSPECIFIED SITE Status: Acute Current Visit: Yes (5) Meconium in amniotic fluid SNOMED Code(s): 7155849 Code(s): P96.83 - MECONIUM STAINING Status: Acute Current Visit: Yes - Problem List Review Problem List Initiated/Reviewed/Updated: Yes - My Orders Last 24 Hours: My Active Orders 05/13/16 09:33 Docusate Sodium [Colace] 100 mg PO DAILY PRN - Assessment Assessment:: 05/12/16 25 year old G2 now P2 without complications Mecomium present in fluid, baby vigorous at GBS positive, treated Formula feeding 05/13/16 Doing well, bleeding light, mood good, some mild cramping HGB 12.3 No fever or elevated WBC 05/15/15 Doing well, no problems ready for discharge - Plan Plan:: 25 yr old 38 5/7 weeks, active labor, gbs pos, antibiotics infusing Plan for vaginal delivery soon 05/12/16 Routine cares 48 hour stay due to GBS positive status 05/13/16 Routine cares Home in am, due to GBS status 05/14/16 Home today see me in 6 weeks
[2016-05-14 09:21] VITALS: BP 90/59
== END 2016-05-14 10:45 | disposition home or self-care (01) | DRG 560 ==
LOC: JP.OBCHECK 13:39 → JP.OB 14:06 → OBSVTOIN 15:17 → JP.MS 17:39
PROVIDERS: ADMIT Nurse Practitioner Family; ATTEND Nurse Practitioner Family
PROC: 10E0XZZ Delivery of Products of Conception, External Approach (ICD-10-PCS; principal; 2016-05-12)
DX: O77.0 Labor and delivery complicated by meconium in amniotic fluid (principal); O99.824 Streptococcus B carrier state complicating childbirth; Z3A.39 39 weeks gestation of pregnancy; Z37.0 Single live birth; O99.820 Streptococcus B carrier state complicating pregnancy
CPT/HCPCS: 36415; 80305; 81001; 85025; 85027; 99211; A9270-GY; J2540; J2590; J3010; J7030

== ENCOUNTER 2018-09-18 10:56 | Inpatient (IN) | payer BC ==
[2018-09-18] MEDS ORDERED: Acetaminophen 325 MG Tab PO PRN (11:57)
[2018-09-18] MEDS ORDERED: Sodium Chloride 0.9% 10 ML Syringe FLUSH PRN (11:57)
[2018-09-18] MEDS ORDERED: Ondansetron 4 MG/2 ML SDV IV PRN (11:57)
[2018-09-18] MEDS ORDERED: Penicillin G Potassium 5 MILLUNITS in Sodium Chloride 0.9% 50 ML IV ONE (12:00)
[2018-09-18] MEDS ORDERED: Lactated Ringers 1,000 ML IV ONE (12:03)
[2018-09-18] MEDS ORDERED: ePHEDrine 50 MG/ML SDV IVPUSH PRN (12:03)
--- NOTE | 2018-09-18 12:09 | PCM.LDHP ---
L&D History of Present Illness - General Date of Service: 09/18/18 Admit Problem/Dx: Patient Status Order with Admit Dx/Problem 09/18/18 11:57 Patient Status [ADT] Routine Admission Diagnosis/Problem Admission Diagnosis/Problem - Related Data Allergies/Adverse Reactions: Allergies Allergy/AdvReac Type Severity Reaction Status Date / Time No Known Allergies Allergy Verified 05/12/16 14:09 Past Medical History [employer] History: Reports: - Infectious Disease History Infectious Disease History: Reports: Chicken Pox Social & Family History - Family History Oncologic: Reports: Breast - Caffeine Use Caffeine Use: Reports: Soda Caffeine Use Comment: 1 soda per day H&P Review of Systems - Review of Systems: Review Of Systems: See Below General: Reports: No Symptoms HEENT: Reports: No Symptoms Pulmonary: Reports: No Symptoms Cardiovascular: Reports: No Symptoms Gastrointestinal: Reports: No Symptoms Genitourinary: Reports: No Symptoms Musculoskeletal: Reports: No Symptoms Skin: Reports: No Symptoms Psychiatric: Reports: No Symptoms Neurological: Reports: No Symptoms Hematologic/Lymphatic: Reports: No Symptoms Immunologic: Reports: No Symptoms L&D Exam - Exam Exam: See Below - Vital Signs Vital Signs: Last Vital Signs Temp 35.8 C 09/18/18 11:29 Pulse 72 09/18/18 11:29 Resp 16 09/18/18 11:29 BP 104/71 09/18/18 11:29 Pulse Ox - OB Specific Contraction Intensity: Mild Movement: Active Heart Tones: Present Heart Rate (FHR) Variability: Moderate (6-25 bmp) Presentation: Vertex - Marie Score Marie Score Cervix Position: Anterior Marie Score Consistency: Soft Marie Score Effacement: >80% Marie Score Dilation: 3-4 cm Marie Score 's Station: -1 ,0 Marie Score Total: 11 - Exam General: Alert, Oriented HEENT: PERRLA, Conjunctiva Clear, EACs Clear, EOMI, Hearing Intact, Mucosa Moist & [place], Nares Patent, Normal Nasal Septum, Posterior Pharynx Clear, Pupils Equal, Pupils Reactive, TMs Clear Neck: Supple, Trachea Midline Lungs: Clear to Auscultation, Normal Respiratory Effort Cardiovascular: Regular Rate, Regular Rhythm GI/Abdominal Exam: Normal Bowel Sounds, Soft, Non-Tender, No Organomegaly, No Distention, No Abnormal Bruit, No Mass, Pelvis Stable Rectal Exam: Normal Exam, Normal Rectal Tone Genitourinary: Normal external exam, Normal bimanual exam, Normal speculum exam Back Exam: Normal Inspection, Full Range of Motion Extremities: Normal Inspection, Normal Range of Motion, Non-Tender, No Pedal Edema, Normal Capillary Refill Skin: Warm, Dry, Intact Neurological: Cranial Nerves Intact, Reflexes Equal Bilateral Psychiatric: Alert, Normal Affect, Normal Mood - Patient Data Lab Results Last 24 hrs: Laboratory Results - last 24 hr 09/18/18 09/18/18 09/18/18 Range/Units 11:21 11:21 11:28 WBC 9.2 (4.5-11.0) K/uL RBC 3.72 (3.30-5.50) M/uL Hgb 11.9 L (12.0-15.0) g/dL Hct 36.3 (36.0-48.0) % MCV 98 (80-98) fL MCH 32 H (27-31) pg MCHC 33 (32-36) % Plt Count 184 (150-400) K/uL Urine Color Yellow (YELLOW) Urine Appearance Clear (CLEAR) Urine pH 7.0 (5.0-8.0) Ur Specific [place] 1.020 (1.008-1.030) Urine Protein Negative (NEGATIVE) mg/dL Urine Glucose (UA) Normal (NEGATIVE) mg/dL Urine Ketones Negative (NEGATIVE) mg/dL Urine Occult Blood Negative (NEGATIVE) Urine Nitrite Negative (NEGATIVE) Urine Bilirubin Negative (NEGATIVE) Urine Urobilinogen 0.2 (0.2-1.0) EU/dL Ur Leukocyte Esterase Negative (NEGATIVE) Urine RBC Not seen (0-5) Urine WBC Not seen (0-5) Ur Epithelial Cells Few Amorphous Sediment Not seen Urine Bacteria Not seen Urine Mucus Not seen Urine Opiates Screen Negative (NEGATIVE) Ur Oxycodone Screen Negative (NEGATIVE) Urine Methadone Screen Negative (NEGATIVE) Ur Propoxyphene Screen Negative (NEGATIVE) Ur Barbiturates Screen Negative (NEGATIVE) Ur Tricyclics Screen Negative (NEGATIVE) Ur Phencyclidine Scrn Negative (NEGATIVE) Ur Amphetamine Screen Negative (NEGATIVE) U Methamphetamines Scrn Negative (NEGATIVE) Urine MDMA Screen Negative (NEGATIVE) U Benzodiazepines Scrn Negative (NEGATIVE) U Cocaine Metab Screen Negative (NEGATIVE) U Marijuana (THC) Screen Negative (NEGATIVE) Result Diagrams: 09/18/18 11:28 - Problem List (1) Elective induction of labor planned SNOMED Code(s): 235443909 ICD Code: UQL7508 - Status: Acute Current Visit: Yes (2) GBS (group B streptococcus) infection SNOMED Code(s): 613611006 ICD Code: A49.1 - STREPTOCOCCAL INFECTION, UNSPECIFIED SITE Status: Acute Current Visit: No (3) SNOMED Code(s): 46554574 ICD Code: Z33.1 - STATE, INCIDENTAL Status: Acute Current Visit : No Qualifiers: Weeks of gestation: 40 weeks Qualified Code(s): Z3A.40 - 40 weeks gestation of Problem List Initiated/Reviewed/Updated: Yes Orders Last 24hrs: Active Orders 24 hr Category Date Time Status Patient Status [ADT] Routine ADT 09/18/18 11:57 Ordered Ambulate [RC] PER UNIT ROUTINE Care 09/18/18 11:57 Ordered Communication Order [RC] ASDIRECTED Care 09/18/18 11:57 Ordered Communication Order [RC] ASDIRECTED Care 09/18/18 12:04 Ordered Communication Order [RC] Per Unit Routine Care 09/18/18 12:04 Ordered Communication Order [RC] Per Unit Routine Care 09/18/18 12:04 Ordered Communication Order [RC] Per Unit Routine Care 09/18/18 12:04 Ordered Communication Order [RC] Per Unit Routine Care 09/18/18 12:04 Ordered Dietary Supplements [RC] BIDMEALS Care 09/18/18 11:27 Active Heart Tones [RC] PER UNIT ROUTINE Care 09/18/18 11:57 Ordered Non Stress Test [RC] Click to Edit Care 09/18/18 11:57 Ordered Insert Urinary Catheter [OM.PC] ASDIRECTED Care 09/18/18 12:15 Ordered Local Anesthetic Infusion Pump [RC] ASDIRECTED Care 09/18/18 12:04 Ordered May Shower [RC] ASDIRECTED Care 09/18/18 11:57 Ordered Nitrous Oxide Delivery [RC] ASDIRECTED Care 09/18/18 12:04 Ordered Notify Provider Vital Signs [RC] PRN Care 09/18/18 11:57 Ordered Notify Provider [RC] PRN Care 09/18/18 11:57 Ordered Oxygen Therapy [RC] ASDIRECTED Care 09/18/18 12:04 Ordered PCEA Epidural [RC] ASDIRECTED Care 09/18/18 12:04 Ordered PCEA Epidural [RC] ASDIRECTED Care 09/18/18 12:04 Ordered Pulse Oximetry [RC] ASDIRECTED Care 09/18/18 12:04 Ordered Up ad Kaylene [RC] ASDIRECTED Care 09/18/18 11:57 Ordered Urinary Catheter Assessment [RC] ASDIRECTED Care 09/18/18 12:04 Ordered VTE/DVT Education [RC] DAILY Care 09/18/18 11:57 Ordered Verify Patient Consent Obtain [RC] ASDIRECTED Care 09/18/18 12:04 Ordered Vital Signs [RC] PER UNIT ROUTINE Care 09/18/18 11:57 Ordered Vital Signs [RC] PER UNIT ROUTINE Care 09/18/18 12:04 Ordered Regular Diet [DIET] Diet 09/18/18 Breakfast Ordered Acetaminophen [Tylenol] Med 09/18/18 11:57 Ordered 650 mg PO Q4H PRN Lactated Ringers [Ringers, Lactated] 1,000 ml Med 09/18/18 12:03 Ordered IV .BOLUS Ondansetron [Zofran] Med 09/18/18 11:57 Ordered 4 mg IV Q4H PRN Oxytocin/Normal Saline [Pitocin in NS 20 Units/1,000 ML Med 09/18/18 11:45 Active ] 20 unit in 1,000 ml IV TITRATE Penicillin G Potassium [Pfizerpen] 2.5 millunits Med 09/18/18 16:00 Active Sodium Chloride 0.9% [Normal Saline] 50 ml IV Q4H Penicillin G Potassium [Pfizerpen] 5 millunits Med 09/18/18 12:00 Active Sodium Chloride 0.9% [Normal Saline] 50 ml IV ONETIME Sodium Chloride 0.9% [Saline Flush] Med 09/18/18 11:57 Ordered 10 ml FLUSH ASDIRECTED PRN ePHEDrine [ePHEDrine sulfate] Med 09/18/18 12:03 Ordered 10 mg IVPUSH ASDIRECTED PRN DVT/VTE Prophylaxis Reflex [OM.PC] Routine Oth 09/18/18 11:57 Ordered Epidural Catheter Management [OM.PC] Urgent Oth 09/18/18 12:04 Ordered Medication Discontinuation Instructions [OM.PC] Routine Oth 09/18/18 12:04 Ordered Saline Lock Insert [OM.PC] Routine Oth 09/18/18 11:57 Ordered Resuscitation Status Routine Resus Stat 09/18/18 11:57 Ordered Medication Orders Acetaminophen (Tylenol) 650 mg PO Q4H PRN PRN Reason: Pain (Mild 1-3) and fever Ephedrine Sulfate (Ephedrine Sulfate) 10 mg IVPUSH ASDIRECTED PRN PRN Reason: Hypotension Penicillin G Potassium 5 (millunits/ Sodium Chloride) 50 mls @ 100 mls/hr IV ONETIME ONE Stop: 09/18/18 12:29 Last Admin: 09/18/18 11:35 Dose: 100 mls/hr Penicillin G Potassium 2.5 (millunits/ Sodium Chloride) 50 mls @ 100 mls/hr IV Q4H SUMMER Oxytocin/Sodium Chloride (Pitocin In Ns 20 Units/1,000 Ml) 20 unit in 1,000 mls @ 9 mls/hr IV TITRATE SUMMER; Protocol Last Admin: 09/18/18 11:56 Dose: 1 munits/min, 3 mls/hr Lactated Ringer's (Ringers, Lactated) 1,000 mls @ 999 mls/hr IV .BOLUS ONE Stop: 09/18/18 13:03 Ondansetron HCl (Zofran) 4 mg IV Q4H PRN PRN Reason: Nausea/Vomiting Sodium Chloride (Saline Flush) 10 ml FLUSH ASDIRECTED PRN PRN Reason: Keep Vein Open Assessment/Plan Comment:: 09/18/2018 27 yo here at 40 4/7 weeks gestation for an induction of labor Patient was seen in the clinic and was 4//-1 and is GBS positive with history of fast labors so asked to stay and be induced Labs-A positive, RPR nonreactive, Hep B neg, Hep C neg, HIV neg, GBS positive Plan- Continue to monitor for active labor Continue to monitor FHTs Start pitocin per protocol Start PCN G for GBS per protocol Pain management per patient request Plan and anticipate a vaginal delivery
[2018-09-18] MEDS ORDERED: Ibuprofen 200 MG Tab, 24 Tab Bulk Bottle PO PRN (15:11)
[2018-09-18] MEDS ORDERED: Acetaminophen 325 MG Tab, 50 Tab Bulk Bottle PO PRN (15:11)
[2018-09-18] MEDS ORDERED: Benzocaine 20% Top Spray 56 GM Bottle TOP PRN (15:15)
[2018-09-18] MEDS ORDERED: Witch Hazel Medicated Pads 100/Jar TOP SCH (15:15)
[2018-09-18] MEDS ORDERED: Penicillin G Potassium 2.5 MILLUNITS in Sodium Chloride 0.9% 50 ML IV SCH (16:00)
[2018-09-18] MEDS ORDERED: Lanolin 100% Cream 40 GM Tube TOP SCH (16:00)
--- NOTE | 2018-09-18 17:06 | PCM.DEL ---
L & D Note - General Info Date of Service: 09/18/18 Mother's Due Date: 09/14/18 - Delivery Note Labor: Augmented by Oxytocin Cervical Ripening Method: Oxytocin Delivery Outcome: Livebirth Delivery Method: Spontaneous Vaginal Delivery-Single Infant Delivery Mode: Spontaneous Presentation: Left Occiput Anterior (DOLLY) Nuchal Cord: Present, Reduced Anesthesia Type: Nitrous Oxide Amniotic Fluid Description: Clear Episiotomy Type: None Laceration: None Placenta: Intact, Spontaneous Cord: 3 Vessels Estimated Blood Loss: 200 Resuscitation Needed: No : Bulb Syringe, Stimulated, Warmed, [place] Used Score 1 min: 8 Score 5 min: 9 Second Stage Interventions: Reports: Second Nurse Assessed Progress of Descent, Second Nurse Reviewed Contraction Pattern, Second Nurse Reviewed Heart Tones, Encouragement Given, Pushing Effectively, Pushing, McRobert's Position Delivery Comments (Free Text/Narrative):: 09/18/2018 27 yo delivered a viable female at 40 4/7 gestational weeks on 09/18 at 1503 in DOLLY position over an intact perineum. Times one nuchal noted that was easily reduced. was delivered and placed on prewarmed blanket on mothers abdomen, delayed cord clamping was done for approximately 60 seconds , infant began to cry and pink in color. Cord was double clamped by provider and cut by father of . Infant then was dried, stimulated and warmed while skin to skin with mother. APGARS-8/9, weight-7lbs 0oz, length-19.7 inches. Placenta spontaneous and intact, three vessel cord. No lacerations noted of perineum, vagina, cervix, or rectum. EBL-200ml. now skin to skin with mother and both are stable in labor and delivery room Stages of labor- 1st [id number] 2nd [id number] 3rd [id number] - General Info Date of Service: 09/18/18 Admission Dx/Problem (Free Text): Patient Status Order with Admit Dx/Problem 09/18/18 11:57 Patient Status [ADT] Routine Admission Diagnosis/Problem Admission Diagnosis/Problem Functional Status: Reports: Pain Controlled - Review of Systems General: Reports: No Symptoms HEENT: Reports: No Symptoms Pulmonary: Reports: No Symptoms Cardiovascular: Reports: No Symptoms Gastrointestinal: Reports: No Symptoms Genitourinary: Reports: No Symptoms Musculoskeletal: Reports: No Symptoms Skin: Reports: No Symptoms Neurological: Reports: No Symptoms Psychiatric: Reports: No Symptoms - Patient Data Vitals - Most Recent: Last Vital Signs Temp 35.8 C 09/18/18 11:29 Pulse 101 H 09/18/18 15:00 Resp 20 09/18/18 15:00 BP 109/67 09/18/18 15:36 Pulse Ox 99 09/18/18 15:00 Weight - Most Recent: 73.2 kg I&O - Last 24 Hours: Intake & Output 09/18/18 09/18/18 09/18/18 06:59 14:59 22:59 Intake Total 1050 Balance 1050 Lab Results Last 24 Hours: Laboratory Results - last 24 hr 09/18/18 09/18/18 09/18/18 Range/Units 11:21 11:21 11:28 WBC 9.2 (4.5-11.0) K/uL RBC 3.72 (3.30-5.50) M/uL Hgb 11.9 L (12.0-15.0) g/dL Hct 36.3 (36.0-48.0) % MCV 98 (80-98) fL MCH 32 H (27-31) pg MCHC 33 (32-36) % Plt Count 184 (150-400) K/uL Urine Color Yellow (YELLOW) Urine Appearance Clear (CLEAR) Urine pH 7.0 (5.0-8.0) Ur Specific [place] 1.020 (1.008-1.030) Urine Protein Negative (NEGATIVE) mg/dL Urine Glucose (UA) Normal (NEGATIVE) mg/dL Urine Ketones Negative (NEGATIVE) mg/dL Urine Occult Blood Negative (NEGATIVE) Urine Nitrite Negative (NEGATIVE) Urine Bilirubin Negative (NEGATIVE) Urine Urobilinogen 0.2 (0.2-1.0) EU/dL Ur Leukocyte Esterase Negative (NEGATIVE) Urine RBC Not seen (0-5) Urine WBC Not seen (0-5) Ur Epithelial Cells Few Amorphous Sediment Not seen Urine Bacteria Not seen Urine Mucus Not seen Urine Opiates Screen Negative (NEGATIVE) Ur Oxycodone Screen Negative (NEGATIVE) Urine Methadone Screen Negative (NEGATIVE) Ur Propoxyphene Screen Negative (NEGATIVE) Ur Barbiturates Screen Negative (NEGATIVE) Ur Tricyclics Screen Negative (NEGATIVE) Ur Phencyclidine Scrn Negative (NEGATIVE) Ur Amphetamine Screen Negative (NEGATIVE) U Methamphetamines Scrn Negative (NEGATIVE) Urine MDMA Screen Negative (NEGATIVE) U Benzodiazepines Scrn Negative (NEGATIVE) U Cocaine Metab Screen Negative (NEGATIVE) U Marijuana (THC) Screen Negative (NEGATIVE) Med Orders - Current: Current Medications Acetaminophen (Tylenol Bulk Bottle) 325 - 650 mg PO Q4H PRN PRN Reason: Pain Benzocaine (Wirw-H-Wsojwwq 20% [place]) 0 gm TOP Q4H PRN PRN Reason: PERINEAL PAIN Emollient Ointment (Lansinoh Hpa) 0 gm TOP ASDIRECTED SUMMER Ephedrine Sulfate (Ephedrine Sulfate) 10 mg IVPUSH ASDIRECTED PRN PRN Reason: Hypotension Oxytocin/Sodium Chloride (Pitocin In Ns 20 Units/1,000 Ml) 20 unit in 1,000 mls @ 9 mls/hr IV TITRATE SUMMER; Protocol Last Titration: 09/18/18 15:03 Dose: 999 mls/hr Ibuprofen (Motrin Bulk Bottle) 600 mg PO Q6H PRN PRN Reason: Pain Ondansetron HCl (Zofran) 4 mg IV Q4H PRN PRN Reason: Nausea/Vomiting Sodium Chloride (Saline Flush) 10 ml FLUSH ASDIRECTED PRN PRN Reason: Keep Vein Open Witshantanu Chavez (Tucks) 1 pad TOP ASDIRECTED SUMMER Discontinued Medications Penicillin G Potassium 5 (millunits/ Sodium Chloride) 50 mls @ 100 mls/hr IV ONETIME ONE Stop: 09/18/18 12:29 Last Admin: 09/18/18 11:35 Dose: 100 mls/hr Penicillin G Potassium 2.5 (millunits/ Sodium Chloride) 50 mls @ 100 mls/hr IV Q4H SUMMER Lactated Ringer's (Ringers, Lactated) 1,000 mls @ 999 mls/hr IV .BOLUS ONE Stop: 09/18/18 13:03 Last Admin: 09/18/18 16:34 Dose: Not Given - Exam General: Alert, Oriented, Cooperative HEENT: Pupils Equal, Pupils Reactive, EOMI, Mucous Membr. Moist/[place] Neck: Supple Lungs: Clear to Auscultation, Normal Respiratory Effort Cardiovascular: Regular Rate, Regular Rhythm GI/Abdominal Exam: Normal Bowel Sounds, Soft, Non-Tender, No Organomegaly, No Distention, No Abnormal Bruit, No Mass, Pelvis Stable (Female) Exam: Normal External Exam, Normal Speculum Exam, Normal Bimanual Exam Back Exam: Normal Inspection, Full Range of Motion Extremities: Normal Inspection, Normal Range of Motion, Non-Tender, No Pedal Edema, Normal Capillary Refill Skin: Warm, Dry, Intact Neurological: No New Focal Deficit Psy/Mental Status: Alert, Normal Affect, Normal Mood - Problem List & Annotations (1) Elective induction of labor planned SNOMED Code(s): 111925481 Code(s): AFQ8592 - Status: Acute Current Visit: Yes (2) GBS (group B streptococcus) infection SNOMED Code(s): 102182296 Code(s): A49.1 - STREPTOCOCCAL INFECTION, UNSPECIFIED SITE Status: Acute Current Visit: No (3) SNOMED Code(s): 35070034 Code(s): Z33.1 - STATE, INCIDENTAL Status: Acute Current Visit: No Qualifiers: Weeks of gestation: 40 weeks Qualified Code(s): Z3A.40 - 40 weeks gestation of (4) Vaginal delivery SNOMED Code(s): 899136464 Code(s): O80 - ENCOUNTER FOR FULL-TERM UNCOMPLICATED DELIVERY Status: Acute Current Visit: Yes (5) Normal labor and delivery SNOMED Code(s): 02157314, 24287811 Code(s): O80 - ENCOUNTER FOR FULL-TERM UNCOMPLICATED DELIVERY Status: Acute Current Visit: No - Problem List Review Problem List Initiated/Reviewed/Updated: Yes - My Orders Last 24 Hours: My Active Orders 09/18/18 11:27 Dietary Supplements [RC] BIDMEALS 09/18/18 11:45 Oxytocin/Normal Saline [Pitocin in NS 20 Units/1,000 ML] 20 unit in 1,000 ml IV TITRATE 09/18/18 11:57 Patient Status [ADT] Routine Ambulate [RC] PER UNIT ROUTINE May Shower [RC] ASDIRECTED Notify Provider Vital Signs [RC] PRN Up ad Kaylene [RC] ASDIRECTED VTE/DVT Education [RC] DAILY Ondansetron [Zofran] 4 mg IV Q4H PRN Sodium Chloride 0.9% [Saline Flush] 10 ml FLUSH ASDIRECTED PRN DVT/VTE Prophylaxis Reflex [OM.PC] Routine Saline Lock Insert [OM.PC] Routine Resuscitation Status Routine 09/18/18 12:03 ePHEDrine [ePHEDrine sulfate] 10 mg IVPUSH ASDIRECTED PRN 09/18/18 12:04 Oxygen Therapy [RC] ASDIRECTED Epidural Catheter Management [OM.PC] Urgent Medication Discontinuation Instructions [OM.PC] Routine 09/18/18 12:15 Insert Urinary Catheter [OM.PC] ASDIRECTED 09/18/18 15:11 Acetaminophen [Tylenol Bulk Bottle] 325 - 650 mg PO Q4H PRN Ibuprofen [Motrin Bulk Bottle] 600 mg PO Q6H PRN Assess Lochia [WOMSER] Per Unit Routine Assess Uterine Involution [WOMSER] Per Unit Routine 09/18/18 15:12 Patient Status [ADT] Routine Vital Signs [RC] PFP Perineal Care [OM.PC] Per Unit Routine 09/18/18 15:15 Benzocaine [Tour-Q-Vaifkbt 20% [place]] See Dose Instructions TOP Q4H PRN Witch Kathy [Tucks] 1 pad TOP ASDIRECTED 09/18/18 16:00 Lanolin [Lansinoh HPA] 0 gm TOP ASDIRECTED 09/18/18 Breakfast Regular Diet [DIET] 09/19/18 06:00 CBC WITH AUTO DIFF [HEME] Routine - Assessment Assessment:: 09/18/2018 without complications Bottlefeeding GBS positive - Plan Plan:: 09/18/2018 27 yo here at 40 4/7 weeks gestation for an induction of labor Patient was seen in the clinic and was 4/90/-1 and is GBS positive with history of fast labors so asked to stay and be induced Labs-A positive, RPR nonreactive, Hep B neg, Hep C neg, HIV neg, GBS positive Plan- Continue to monitor for active labor Continue to monitor FHTs Start pitocin per protocol Start PCN G for GBS per protocol Pain management per patient request Plan and anticipate a vaginal delivery 09/18/2018 Routine cares Plan to discharge in 48 hours
--- NOTE | 2018-09-19 08:31 | PCM.PNPP ---
- General Info Date of Service: 09/19/18 Functional Status: Reports: Pain Controlled - Review of Systems General: Reports: No Symptoms HEENT: Reports: No Symptoms Pulmonary: Reports: No Symptoms Cardiovascular: Reports: No Symptoms Gastrointestinal: Reports: No Symptoms Genitourinary: Reports: No Symptoms Musculoskeletal: Reports: No Symptoms Skin: Reports: No Symptoms Neurological: Reports: No Symptoms Psychiatric: Reports: No Symptoms - General Info Date of Service: 09/19/18 - Patient Data Vital Signs - Most Recent: Last Vital Signs Temp 36.2 C 09/19/18 07:06 Pulse 73 09/19/18 07:06 Resp 16 09/19/18 07:06 BP 100/68 09/19/18 07:06 Pulse Ox 99 09/19/18 07:06 Weight - Most Recent: 73.2 kg I&O - Last 24 Hours: Intake & Output 09/18/18 09/19/18 09/19/18 22:59 06:59 14:59 Intake Total 1050 800 Balance 1050 800 Lab Results - Last 24 Hours: Laboratory Results - last 24 hr 09/18/18 09/18/18 09/18/18 Range/Units 11:21 11:21 11:28 WBC 9.2 (4.5-11.0) K/uL RBC 3.72 (3.30-5.50) M/uL Hgb 11.9 L (12.0-15.0) g/dL Hct 36.3 (36.0-48.0) % MCV 98 (80-98) fL MCH 32 H (27-31) pg MCHC 33 (32-36) % Plt Count 184 (150-400) K/uL Neut % (Auto) (36-66) % Lymph % (Auto) (24-44) % [place] % (Auto) (2-6) % Eos % (Auto) (2-4) % Baso % (Auto) (0-1) % Urine Color Yellow (YELLOW) Urine Appearance Clear (CLEAR) Urine pH 7.0 (5.0-8.0) Ur Specific [place] 1.020 (1.008-1.030) Urine Protein Negative (NEGATIVE) mg/dL Urine Glucose (UA) Normal (NEGATIVE) mg/dL Urine Ketones Negative (NEGATIVE) mg/dL Urine Occult Blood Negative (NEGATIVE) Urine Nitrite Negative (NEGATIVE) Urine Bilirubin Negative (NEGATIVE) Urine Urobilinogen 0.2 (0.2-1.0) EU/dL Ur Leukocyte Esterase Negative (NEGATIVE) Urine RBC Not seen (0-5) Urine WBC Not seen (0-5) Ur Epithelial Cells Few Amorphous Sediment Not seen Urine Bacteria Not seen Urine Mucus Not seen Urine Opiates Screen Negative (NEGATIVE) Ur Oxycodone Screen Negative (NEGATIVE) Urine Methadone Screen Negative (NEGATIVE) Ur Propoxyphene Screen Negative (NEGATIVE) Ur Barbiturates Screen Negative (NEGATIVE) Ur Tricyclics Screen Negative (NEGATIVE) Ur Phencyclidine Scrn Negative (NEGATIVE) Ur Amphetamine Screen Negative (NEGATIVE) U Methamphetamines Scrn Negative (NEGATIVE) Urine MDMA Screen Negative (NEGATIVE) U Benzodiazepines Scrn Negative (NEGATIVE) U Cocaine Metab Screen Negative (NEGATIVE) U Marijuana (THC) Screen Negative (NEGATIVE) 09/19/18 Range/Units 04:30 WBC 10.8 (4.5-11.0) K/uL RBC 3.34 (3.30-5.50) M/uL Hgb 10.8 L (12.0-15.0) g/dL Hct 33.1 L (36.0-48.0) % MCV 99 H (80-98) fL MCH 32 H (27-31) pg MCHC 33 (32-36) % Plt Count 182 (150-400) K/uL Neut % (Auto) 53 (36-66) % Lymph % (Auto) 35 (24-44) % [place] % (Auto) 11 H (2-6) % Eos % (Auto) 1 L (2-4) % Baso % (Auto) 0 (0-1) % Urine Color (YELLOW) Urine Appearance (CLEAR) Urine pH (5.0-8.0) Ur Specific [place] (1.008-1.030) Urine Protein (NEGATIVE) mg/dL Urine Glucose (UA) (NEGATIVE) mg/dL Urine Ketones (NEGATIVE) mg/dL Urine Occult Blood (NEGATIVE) Urine Nitrite (NEGATIVE) Urine Bilirubin (NEGATIVE) Urine Urobilinogen (0.2-1.0) EU/dL Ur Leukocyte Esterase (NEGATIVE) Urine RBC (0-5) Urine WBC (0-5) Ur Epithelial Cells Amorphous Sediment Urine Bacteria Urine Mucus Urine Opiates Screen (NEGATIVE) Ur Oxycodone Screen (NEGATIVE) Urine Methadone Screen (NEGATIVE) Ur Propoxyphene Screen (NEGATIVE) Ur Barbiturates Screen (NEGATIVE) Ur Tricyclics Screen (NEGATIVE) Ur Phencyclidine Scrn (NEGATIVE) Ur Amphetamine Screen (NEGATIVE) U Methamphetamines Scrn (NEGATIVE) Urine MDMA Screen (NEGATIVE) U Benzodiazepines Scrn (NEGATIVE) U Cocaine Metab Screen (NEGATIVE) U Marijuana (THC) Screen (NEGATIVE) Med Orders - Current: Current Medications Acetaminophen (Tylenol Bulk Bottle) 325 - 650 mg PO Q4H PRN PRN Reason: Pain Last Admin: 09/18/18 18:08 Dose: 1 bottle Benzocaine (Drjz-M-Ntjhywc 20% [place]) 0 gm TOP Q4H PRN PRN Reason: PERINEAL PAIN Last Admin: 09/18/18 18:07 Dose: 1 applic Emollient Ointment (Lansinoh Hpa) 0 gm TOP ASDIRECTED SUMMER Ephedrine Sulfate (Ephedrine Sulfate) 10 mg IVPUSH ASDIRECTED PRN PRN Reason: Hypotension Oxytocin/Sodium Chloride (Pitocin In Ns 20 Units/1,000 Ml) 20 unit in 1,000 mls @ 9 mls/hr IV TITRATE SUMMER; Protocol Last Titration: 09/18/18 15:03 Dose: 999 mls/hr Ibuprofen (Motrin Bulk Bottle) 600 mg PO Q6H PRN PRN Reason: Pain Last Admin: 09/18/18 18:07 Dose: 1 bottle Ondansetron HCl (Zofran) 4 mg IV Q4H PRN PRN Reason: Nausea/Vomiting Sodium Chloride (Saline Flush) 10 ml FLUSH ASDIRECTED PRN PRN Reason: Keep Vein Open Zehra Chavez ([place]) 1 pad TOP ASDIRECTED SUMMER Discontinued Medications Penicillin G Potassium 5 (millunits/ Sodium Chloride) 50 mls @ 100 mls/hr IV ONETIME ONE Stop: 09/18/18 12:29 Last Admin: 09/18/18 11:35 Dose: 100 mls/hr Penicillin G Potassium 2.5 (millunits/ Sodium Chloride) 50 mls @ 100 mls/hr IV Q4H SUMMER Lactated Ringer's (Ringers, Lactated) 1,000 mls @ 999 mls/hr IV .BOLUS ONE Stop: 09/18/18 13:03 Last Admin: 09/18/18 16:34 Dose: Not Given - Interaction Disposition, : [place] in Room with Family Interaction: Holding Infant Feeding: Bottle Fed Infant Support Person: - Recovery Exam Fundal Tone: Firm Fundal Level: 1 Fingerbreadths Below Umbilicus Fundal Placement: Midline Lochia Amount: Small Lochia Color: Rubra/Red Perineum Description: Intact, Minimal Bruising/Swelling Episiotomy/Laceration: None Bladder Status: Voiding Urinary Elimination: Voided - Exam General: Alert, Oriented, Cooperative HEENT: Pupils Equal Neck: Supple Lungs: Clear to Auscultation, Normal Respiratory Effort Cardiovascular: Regular Rate, Regular Rhythm GI/Abdominal Exam: Normal Bowel Sounds, Soft, Non-Tender, No Organomegaly, No Distention, No Abnormal Bruit, No Mass, Pelvis Stable Extremities: Normal Inspection, Normal Range of Motion, Non-Tender, No Pedal Edema, Normal Capillary Refill Skin: Warm, Dry, Intact Neurological: No New Focal Deficit Psy/Mental Status: Alert, Normal Affect, Normal Mood - Problem List & Annotations (1) Elective induction of labor planned SNOMED Code(s): 191875061 Code(s): CLF1628 - Status: Acute Current Visit: Yes (2) GBS (group B streptococcus) infection SNOMED Code(s): 253622439 Code(s): A49.1 - STREPTOCOCCAL INFECTION, UNSPECIFIED SITE Status: Acute Current Visit: No (3) SNOMED Code(s): 65355714 Code(s): Z33.1 - STATE, INCIDENTAL Status: Acute Current Visit: No Qualifiers: Weeks of gestation: 40 weeks Qualified Code(s): Z3A.40 - 40 weeks gestation of (4) Vaginal delivery SNOMED Code(s): 056628009 Code(s): O80 - ENCOUNTER FOR FULL-TERM UNCOMPLICATED DELIVERY Status: Acute Current Visit: Yes (5) Normal labor and delivery SNOMED Code(s): 62387495, 01050619 Code(s): O80 - ENCOUNTER FOR FULL-TERM UNCOMPLICATED DELIVERY Status: Acute Current Visit: No - Problem List Review Problem List Initiated/Reviewed/Updated: Yes - My Orders Last 24 Hours: My Active Orders 09/18/18 11:27 Dietary Supplements [RC] BIDMEALS 09/18/18 11:45 Oxytocin/Normal Saline [Pitocin in NS 20 Units/1,000 ML] 20 unit in 1,000 ml IV TITRATE 09/18/18 11:57 Patient Status [ADT] Routine Ambulate [RC] PER UNIT ROUTINE May Shower [RC] ASDIRECTED Notify Provider Vital Signs [RC] PRN Up ad Kaylene [RC] ASDIRECTED VTE/DVT Education [RC] DAILY Ondansetron [Zofran] 4 mg IV Q4H PRN Sodium Chloride 0.9% [Saline Flush] 10 ml FLUSH ASDIRECTED PRN DVT/VTE Prophylaxis Reflex [OM.PC] Routine Saline Lock Insert [OM.PC] Routine Resuscitation Status Routine 09/18/18 12:03 ePHEDrine [ePHEDrine sulfate] 10 mg IVPUSH ASDIRECTED PRN 09/18/18 12:04 Epidural Catheter Management [OM.PC] Urgent Medication Discontinuation Instructions [OM.PC] Routine 09/18/18 12:15 Insert Urinary Catheter [OM.PC] ASDIRECTED 09/18/18 15:11 Acetaminophen [Tylenol Bulk Bottle] 325 - 650 mg PO Q4H PRN Ibuprofen [Motrin Bulk Bottle] 600 mg PO Q6H PRN Assess Lochia [WOMSER] Per Unit Routine Assess Uterine Involution [WOMSER] Per Unit Routine 09/18/18 15:12 Patient Status [ADT] Routine Vital Signs [RC] PFP Perineal Care [OM.PC] Per Unit Routine 09/18/18 15:15 Benzocaine [Lyja-O-Veomekj 20% [place]] See Dose Instructions TOP Q4H PRN Witch Kathy [Tucks] 1 pad TOP ASDIRECTED 09/18/18 16:00 Lanolin [Lansinoh HPA] 0 gm TOP ASDIRECTED 09/18/18 Breakfast Regular Diet [DIET] - Assessment Assessment:: 09/18/2018 without complications Bottlefeeding GBS positive 09/19/2018 day one Bottlefeeding Fundus firm and bleeding decreasing Happy with delivery Requesting discharge after 24hrs - Plan Plan:: 09/18/2018 27 yo here at 40 4/7 weeks gestation for an induction of labor Patient was seen in the clinic and was 4/90/ and is GBS positive with history of fast labors so asked to stay and be induced Labs-A positive, RPR nonreactive, Hep B neg, Hep C neg, HIV neg, GBS positive Plan- Continue to monitor for active labor Continue to monitor FHTs Start pitocin per protocol Start PCN G for GBS per protocol Pain management per patient request Plan and anticipate a vaginal delivery 09/18/2018 Routine cares Plan to discharge in 48 hours 09/19/2018 Continue routine cares Plan to discharge today per patient request
[2018-09-19 12:49] VITALS: BP 114/70; PULSE 75
== END 2018-09-19 16:17 | disposition home or self-care (01) | DRG 560 ==
LOC: JP.OB 10:56 → OBSVTOIN 15:03 → JP.OB 15:03 → JP.MS 17:52
PROVIDERS: ADMIT Advanced Practice Midwife; ATTEND Advanced Practice Midwife
PROC: 10E0XZZ Delivery of Products of Conception, External Approach (ICD-10-PCS; principal; 2018-09-18)
PROC: 3E033VJ Introduction of Other Hormone into Peripheral Vein, Percutaneous Approach (ICD-10-PCS; 2018-09-18)
DX: O99.824 Streptococcus B carrier state complicating childbirth (principal); Z3A.40 40 weeks gestation of pregnancy; Z37.0 Single live birth
CPT/HCPCS: 36415; 59409; 80305-QW; 81001; 85025; 85027; 99211; A9270-GY; J2540; J2590; J7050

== ENCOUNTER 2020-09-13 11:07 | Inpatient (IN) | payer BC ==
[2020-09-13] MEDS ORDERED: Sodium Chloride 0.9% 10 ML Syringe FLUSH PRN ×2 (11:58→12:01)
[2020-09-13] MEDS ORDERED: Calcium Carbonate 500 MG Tab.Chew PO PRN (12:01)
[2020-09-13] MEDS ORDERED: Ondansetron 4 MG/2 ML SDV IV PRN (12:01)
--- NOTE | 2020-09-13 13:17 | PCM.LDHP ---
L&D History of Present Illness - General Date of Service: 09/13/20 Admit Problem/Dx: Patient Status Order with Admit Dx/Problem 09/13/20 12:01 Patient Status [ADT] Routine Admission Diagnosis/Problem Admission Diagnosis/Problem Term Source of Information: Patient History Limitations: Reports: No Limitations - History of Present Illness Introduction:: 09/13/20 29 yo came to clinic today for 39 3/7 weeks OB check with mild contractions and was advanced dilation at 6/80/-1. She was given options of expectant manage ment vs augmentation. She prefers augmentation especially due to history of quick labor. She has had an uncomplicated . She is O positive blood type, GBS negative, rubella immune, HIV/RPR/hep B/C all NR. FHT's category 1. All babies were without complications. Timing/Duration: Reports: intermittent Location, : Reports: Abdomen Severity: Mild Improves with: Reports: None Worsens with: Reports: None Associated Symptoms: Denies: vaginal bleeding, vaginal fluid - Related Data Allergies/Adverse Reactions: Allergies Allergy/AdvReac Type Severity Reaction Status Date / Time No Known Allergies Allergy Verified 05/12/16 14:09 Home Medications: Home Meds #103/Iron Fumarate/Fa [ ] 1 each PO DAILY 09/13/20 [History] Past Medical History [employer] History: Reports: : 4 Para: 3 LMP (Approximate): - Infectious Disease History Infectious Disease History: Reports: Chicken Pox - Past Surgical History Head Surgeries/Procedures: Reports: None Social & Family History - Family History Cardiac: Reports: [place], Other (See Below) Other Cardiac Family History: grandparent, uncle heart transplant OBGYN: Reports: Endocrine/Metabolic: Reports: Diabetes, type II Other Endocrine/Metabolic Family History: grandparents Oncologic: Reports: Breast Other Oncologic Family History: mom, breast - Tobacco Use Tobacco Use Status *Q: Never Tobacco User Second Hand Smoke Exposure: No - Caffeine Use Caffeine Use: Reports: None Caffeine Use Comment: 1 soda per day - Recreational Drug Use Recreational Drug Use: No Drug Use in Last 12 Months: No H&P Review of Systems - Review of Systems: Review Of Systems: See Below General: Reports: No Symptoms HEENT: Reports: No Symptoms Pulmonary: Reports: No Symptoms Cardiovascular: Reports: No Symptoms Gastrointestinal: Reports: No Symptoms Genitourinary: Reports: No Symptoms Musculoskeletal: Reports: No Symptoms Skin: Reports: No Symptoms Psychiatric: Reports: No Symptoms Neurological: Reports: No Symptoms Hematologic/Lymphatic: Reports: No Symptoms Immunologic: Reports: No Symptoms L&D Exam - Exam Exam: See Below - Vital Signs Vital Signs: Last Vital Signs Temp 36.2 C 09/13/20 11:42 Pulse 78 09/13/20 11:42 Resp 16 09/13/20 11:42 BP 100/66 09/13/20 11:42 Pulse Ox 96 09/13/20 11:42 Weight: 68.492 kg - OB Specific Contraction Intensity: Mild to Moderate Movement: Active Heart Tones: Present Heart Rate (FHR) Variability: Moderate (6-25 bpm) Presentation: Vertex - Marie Score Marie Score Cervix Position: Midposition Marie Score Consistency: Soft Marie Score Effacement: >80% Marie Score Dilation: > 5 cm Marie Score 's Station: -1 ,0 Marie Score Total: 11 - Exam General: Alert, Oriented HEENT: PERRLA, Conjunctiva Clear, Hearing Intact, Mucosa Moist & [place], Nares Patent, Posterior Pharynx Clear, Pupils Equal, Pupils Reactive Neck: Supple, Trachea Midline Lungs: Clear to Auscultation, Normal Respiratory Effort Cardiovascular: Regular Rate, Regular Rhythm GI/Abdominal Exam: Normal Bowel Sounds, Soft, Non-Tender, No Mass, Pelvis Stable Rectal Exam: Normal Exam Genitourinary: Normal external exam, Normal bimanual exam, Cervical dilitation, Enlarged uterus Back Exam: Normal Inspection, Full Range of Motion Extremities: Normal Inspection, Normal Range of Motion, Non-Tender, No Pedal Edema, Normal Capillary Refill Skin: Warm, Dry, Intact Neurological: Cranial Nerves Intact, Reflexes Equal Bilateral Psychiatric: Alert, Normal Affect, Normal Mood - Patient Data Lab Results Last 24 hrs: Laboratory Results - last 24 hr 09/13/20 09/13/20 09/13/20 Range/Units 11:23 12:01 12:10 WBC 8.4 (4.5-11.0) K/uL RBC 3.70 (3.30-5.50) M/uL Hgb 12.2 (12.0-15.0) g/dL Hct 35.8 L (36.0-48.0) % MCV 97 (80-98) fL MCH 33 H (27-31) pg MCHC 34 (32-36) % Plt Count 177 (150-400) K/uL Neut % (Auto) 71.0 H (36-66) % Lymph % (Auto) 20.3 L (24-44) % Armstrong % (Auto) 8.1 H (2-6) % Eos % (Auto) 0.4 L (2-4) % Baso % (Auto) 0.2 (0-1) % Sodium (140-148) mmol/L Potassium (3.6-5.2) mmol/L Chloride (100-108) mmol/L Carbon Dioxide (21-32) mmol/L Anion Gap (5.0-14.0) mmol/L BUN (7-18) mg/dL Creatinine (0.6-1.0) mg/dL Est Cr Clr Drug Dosing mL/min Estimated GFR (MDRD) (>60) Glucose (74-106) mg/dL Calcium (8.5-10.1) mg/dL Total Bilirubin (0.2-1.0) mg/dL AST (15-37) U/L ALT (12-78) U/L Alkaline Phosphatase (46-116) U/L Total Protein (6.4-8.2) g/dL Albumin (3.4-5.0) g/dL Globulin (2.3-3.5) g/dL Albumin/Globulin Ratio (1.2-2.2) Urine Color Yellow (YELLOW) Urine Appearance Clear (CLEAR) Urine pH 5.5 (5.0-8.0) Ur Specific Umpire 1.015 (1.008-1.030) Urine Protein Negative (NEGATIVE) mg/dL Urine Glucose (UA) Negative (NEGATIVE) mg/dL Urine Ketones Negative (NEGATIVE) mg/dL Urine Occult Blood Negative (NEGATIVE) Urine Nitrite Negative (NEGATIVE) Urine Bilirubin Negative (NEGATIVE) Urine Urobilinogen 0.2 (0.2-1.0) EU/dL Ur Leukocyte Esterase Negative (NEGATIVE) Urine RBC 0-5 (0-5) Urine WBC 0-5 (0-5) Ur Epithelial Cells Moderate Amorphous Sediment Numerous Urine Bacteria Not seen Urine Mucus Not seen Urine Opiates Screen Negative (NEGATIVE) Ur Oxycodone Screen Negative (NEGATIVE) Urine Methadone Screen Negative (NEGATIVE) Ur Propoxyphene Screen Negative (NEGATIVE) Ur Barbiturates Screen Negative (NEGATIVE) Ur Tricyclics Screen Negative (NEGATIVE) Ur Phencyclidine Scrn Negative (NEGATIVE) Ur Amphetamine Screen Negative (NEGATIVE) U Methamphetamines Scrn Negative (NEGATIVE) Urine MDMA Screen Negative (NEGATIVE) U Benzodiazepines Scrn Negative (NEGATIVE) U Cocaine Metab Screen Negative (NEGATIVE) U Marijuana (THC) Screen Negative (NEGATIVE) 09/13/20 Range/Units 12:10 WBC (4.5-11.0) K/uL RBC (3.30-5.50) M/uL Hgb (12.0-15.0) g/dL Hct (36.0-48.0) % MCV (80-98) fL MCH (27-31) pg MCHC (32-36) % Plt Count (150-400) K/uL Neut % (Auto) (36-66) % Lymph % (Auto) (24-44) % Armstrong % (Auto) (2-6) % Eos % (Auto) (2-4) % Baso % (Auto) (0-1) % Sodium 136 L (140-148) mmol/L Potassium 4.1 (3.6-5.2) mmol/L Chloride 103 (100-108) mmol/L Carbon Dioxide 22 (21-32) mmol/L Anion Gap 15.1 H (5.0-14.0) mmol/L BUN 19 H (7-18) mg/dL Creatinine 0.7 (0.6-1.0) mg/dL Est Cr Clr Drug Dosing 103.73 mL/min Estimated GFR (MDRD) > 60 (>60) Glucose 101 (74-106) mg/dL Calcium 8.9 (8.5-10.1) mg/dL Total Bilirubin 0.5 (0.2-1.0) mg/dL AST 23 (15-37) U/L ALT 19 (12-78) U/L Alkaline Phosphatase 118 H (46-116) U/L Total Protein 6.1 L (6.4-8.2) g/dL Albumin 2.7 L (3.4-5.0) g/dL Globulin 3.4 (2.3-3.5) g/dL Albumin/Globulin Ratio 0.8 L (1.2-2.2) Urine Color (YELLOW) Urine Appearance (CLEAR) Urine pH (5.0-8.0) Ur Specific Umpire (1.008-1.030) Urine Protein (NEGATIVE) mg/dL Urine Glucose (UA) (NEGATIVE) mg/dL Urine Ketones (NEGATIVE) mg/dL Urine Occult Blood (NEGATIVE) Urine Nitrite (NEGATIVE) Urine Bilirubin (NEGATIVE) Urine Urobilinogen (0.2-1.0) EU/dL Ur Leukocyte Esterase (NEGATIVE) Urine RBC (0-5) Urine WBC (0-5) Ur Epithelial Cells Amorphous Sediment Urine Bacteria Urine Mucus Urine Opiates Screen (NEGATIVE) Ur Oxycodone Screen (NEGATIVE) Urine Methadone Screen (NEGATIVE) Ur Propoxyphene Screen (NEGATIVE) Ur Barbiturates Screen (NEGATIVE) Ur Tricyclics Screen (NEGATIVE) Ur Phencyclidine Scrn (NEGATIVE) Ur Amphetamine Screen (NEGATIVE) U Methamphetamines Scrn (NEGATIVE) Urine MDMA Screen (NEGATIVE) U Benzodiazepines Scrn (NEGATIVE) U Cocaine Metab Screen (NEGATIVE) U Marijuana (THC) Screen (NEGATIVE) Result Diagrams: 09/13/20 12:10 09/13/20 12:10 - Problem List (1) Term SNOMED Code(s): 05440474 ICD Code: Z34.90 - ENCNTR FOR SUPRVSN OF NORMAL , UNSP, UNSP TRIMESTER Status: Acute Current Visit: Yes Problem List Initiated/Reviewed/Updated: Yes Orders Last 24hrs: Active Orders 24 hr Category Date Time Status Patient Status [ADT] Routine ADT 09/13/20 12:01 Active Communication Order [RC] ASDIRECTED Care 09/13/20 12:01 Active Heart Tones [RC] PER UNIT ROUTINE Care 09/13/20 12:01 Active Non Stress Test [RC] Click to Edit Care 09/13/20 12:01 Active Notify Provider Vital Signs [RC] PRN Care 09/13/20 12:02 Active Notify Provider [RC] PRN Care 09/13/20 12:01 Active OB Check [OM.PC] Click To Edit Care 09/13/20 11:15 Ordered Peripheral IV Care [RC] . DIRECTED Care 09/13/20 11:58 Active Up ad Kaylene [RC] ASDIRECTED Care 09/13/20 12:01 Active VTE/DVT Education [RC] Click to Edit Care 09/13/20 12:02 Active Vital Signs [RC] PER UNIT ROUTINE Care 09/13/20 12:01 Active Calcium Carbonate [Tums] Med 09/13/20 12:01 Active 1,000 mg PO Q2H PRN Ondansetron [Zofran] Med 09/13/20 12:01 Active 4 mg IV Q4H PRN Oxytocin/Normal Saline [Pitocin in NS 20 Units/1,000 ML Med 09/13/20 12:15 Active ] 20 unit in 1,000 ml IV TITRATE Sodium Chloride 0.9% [Saline Flush] Med 09/13/20 11:58 Active 10 ml FLUSH ASDIRECTED PRN DVT/VTE Prophylaxis Reflex [OM.PC] Routine Oth 09/13/20 12:01 Ordered Peripheral IV Insertion Adult [OM.PC] Routine Oth 09/13/20 11:58 Ordered Saline Lock Insert [OM.PC] Routine Oth 09/13/20 12:01 Ordered Resuscitation Status Routine Resus Stat 09/13/20 12:01 Ordered Medication Orders Calcium Carbonate/Glycine (Calcium Carbonate 500 Mg Tab.Chew) 1,000 mg PO Q2H PRN PRN Reason: Indigestion Oxytocin/Sodium Chloride (Pitocin In Ns 20 Units/1,000 Ml) 20 unit in 1,000 mls @ 6 mls/hr IV TITRATE SUMMER; Protocol Last Admin: 09/13/20 12:25 Dose: 2 munits/min, 6 mls/hr Documented by: [id number] Ondansetron HCl (Ondansetron 4 Mg/2 Ml Sdv) 4 mg IV Q4H PRN PRN Reason: Nausea/Vomiting Sodium Chloride (Sodium Chloride 0.9% 10 Ml Syringe) 10 ml FLUSH ASDIRECTED PRN PRN Reason: Keep Vein Open Assessment/Plan Comment:: 09/13/20 Assessment: here at 39 3/7 weeks with advanced cervical dilation GBS negative rubella immune Hgb 12.2 SVE in clinid 80/-1, currently /- Category 1 tracing Plan: Pitocin titrate started AROM for clear fluid Nitrous oxide being used Anticipate
[2020-09-13] MEDS ORDERED: Penicillin G Potassium 5 MILLUNITS in Sodium Chloride 0.9% 100 ML IV ONE (16:30)
[2020-09-13] MEDS ORDERED: Sodium Chloride 0.9% 1,000 ML IV ONE (17:00)
[2020-09-13] MEDS ORDERED: Sodium Chloride 0.9% 1,000 ML IV SCH (17:30)
--- NOTE | 2020-09-13 17:43 | PCM.PNLD ---
Labor Progress Note - VS & Meds Vital Signs: Last Vital Signs Temp 36.4 C 09/13/20 15:30 Pulse 78 09/13/20 15:30 Resp 16 09/13/20 15:30 BP 105/69 09/13/20 15:30 Pulse Ox 97 09/13/20 15:30 Active Medications: Current Medications Calcium Carbonate/Glycine (Calcium Carbonate 500 Mg Tab.Chew) 1,000 mg PO Q2H PRN PRN Reason: Indigestion Oxytocin/Sodium Chloride (Pitocin In Ns 20 Units/1,000 Ml) 20 unit in 1,000 mls @ 6 mls/hr IV TITRATE SUMMER; Protocol Last Titration: 09/13/20 17:25 Dose: 2 munits/min, 6 mls/hr Documented by: Penicillin G Potassium 2.5 (millunits/ Sodium Chloride) 50 mls @ 100 mls/hr IV Q4H SUMMER Sodium Chloride (Normal Saline) 1,000 mls @ 500 mls/hr IV .BOLUS ONE Stop: 09/13/20 18:59 Last Infusion: 09/13/20 17:00 Dose: Infused Documented by: Sodium Chloride (Normal Saline) 1,000 mls @ 0 mls/hr IV ASDIRECTED SUMMER Last Admin: 09/13/20 17:00 Dose: 25 mls/hr Documented by: Ondansetron HCl (Ondansetron 4 Mg/2 Ml Sdv) 4 mg IV Q4H PRN PRN Reason: Nausea/Vomiting Sodium Chloride (Sodium Chloride 0.9% 10 Ml Syringe) 10 ml FLUSH ASDIRECTED PRN PRN Reason: Keep Vein Open Discontinued Medications Oxytocin/Sodium Chloride (Pitocin In Ns 20 Units/1,000 Ml) Confirm Administered Dose 20 unit in 1,000 mls @ as directed .ROUTE .STK-MED ONE Stop: 09/13/20 12:07 Last Admin: 09/13/20 12:26 Dose: Not Given Documented by: Penicillin G Potassium 5 (millunits/ Sodium Chloride) 100 mls @ 200 mls/hr IV ONETIME ONE Stop: 09/13/20 16:59 Last Admin: 09/13/20 16:41 Dose: 200 mls/hr Documented by: - Uterine Contractions Uterine Monitoring Mode: External [place] Contraction Frequency (min): 3-4 Contraction Duration (sec): 60 Contraction Intensity: Moderate Uterine Resting Tone: Soft - Monitoring Monitor Mode: External Ultrasound Heart Rate (FHR) Variability: Moderate (6-25 bpm) Accelerations: Present, 15x15 Decelerations: None Strip Review: Category I - Vaginal Exam Dilation (cm): 8 Sterile Vaginal Exam Performed By: Therese Macias - Labor Progress (Free Text) Labor Progress: 09/13/20 Patient making slow progress, has been 8 cm for several hours but contractions are not strong and there has been quite some uterine dysfunction as far as labor pattern. Penicillin given due to dysfunctional labor pattern, AVSS and not febrile, fluid clear. Patient was GBS positive with previous 3 babies so this is given prophylactically today due to the dysfunction. She did have some late decelerations with the pitocin increases and so we have shut the pitocin off twice and done fluid bolus's. Pitocin is restarted now and baby is tolerating fine with category 1 tracing. The novii made it appear patient was hyp erstimulated but contractions not palpated so we switched back to the corded monitors. Patient is feeling some contractions but not all. Continue to increase pitocin and monitor closely.
[2020-09-13] MEDS ORDERED: Lanolin 100% Cream 40 GM Tube TOP PRN (19:18)
[2020-09-13] MEDS ORDERED: Docusate Sodium 100 MG Cap PO PRN (19:18)
[2020-09-13] MEDS ORDERED: Witch Hazel Medicated Pads 100/Jar TOP PRN (19:18)
[2020-09-13] MEDS ORDERED: Benzocaine 20% Top Spray 56 GM Bottle TOP PRN (19:18)
[2020-09-13] MEDS ORDERED: Acetaminophen 325 MG Tab, 50 Tab Bulk Bottle PO PRN (19:23)
[2020-09-13] MEDS ORDERED: Ibuprofen 200 MG Tab, 24 Tab Bulk Bottle PO PRN (19:23)
--- NOTE | 2020-09-13 19:35 | PCM.DEL ---
L & D Note - General Info Date of Service: 09/13/20 Mother's Due Date: 09/17/20 - Delivery Note Labor: Augmented by ARM, Augmented by Oxytocin Delivery Outcome: Livebirth Delivery Method: Spontaneous Vaginal Delivery-Single Infant Delivery Mode: Spontaneous Presentation: Left Occiput Anterior (DOLLY) Nuchal Cord: None Anesthesia Type: Nitrous Oxide Episiotomy Type: None Laceration: None Placenta: Intact, Spontaneous Cord: 3 Vessels Estimated Blood Loss: 200 Resuscitation Needed: No [place]: Stimulated Provider: Therese Macias Score 1 min: 8 Score 5 min: 9 Second Stage Interventions: Reports: Second Nurse Assessed Progress of Descent, Second Nurse Reviewed Contraction Pattern, Second Nurse Reviewed Heart Tones, Encouragement Given, Laboring Down, Pushing Effectively Delivery Comments (Free Text/Narrative):: 09/13/20 29 yo G4 now P4 delivered viable female infant at 39 3/7 weeks. She came to clinic for OB check today had advanced dilation at 6/80/-1 with mild contractions. She had augmentation here with AROM of clear fluid and pitocin titrate. It took some time to get into an active labor pattern but once she established a nice contraction pattern she dilated quickly. She pushed briefly and delivered baby girl in DOLLY position, no nuchal cord. Baby was placed on chest and delayed cord clamping was done for 4 minutes. Baby cried with stimulation. Apgars 8, 9. Perineum, vagina, and cervix all intact. Placenta delivered spontaneously with 3 vessel cord. Pitocin given for third stage management, EBL 200 ml. Weight 6 lb 4 oz. Stages of labor: 1: 3702-3592 2: 3040-9362 3: 5645-5425 Induction Criteria - Augmentation Estimated Pelvis: Reports: Adequate Weight Estimated:: Reports: AGA Estimated Weight if LGA: 2.722 kg Reassuring Monitoring Strip: Yes Absence of Tachy Systole: Yes - General Info Date of Service: 09/13/20 Functional Status: Reports: Pain Controlled - Review of Systems General: Reports: No Symptoms HEENT: Reports: No Symptoms Pulmonary: Reports: No Symptoms Cardiovascular: Reports: No Symptoms Gastrointestinal: Reports: No Symptoms Genitourinary: Reports: No Symptoms Musculoskeletal: Reports: No Symptoms Skin: Reports: No Symptoms Neurological: Reports: No Symptoms Psychiatric: Reports: No Symptoms - Patient Data Vitals - Most Recent: Last Vital Signs Temp 36.6 C 09/13/20 18:26 Pulse 78 09/13/20 15:30 Resp 16 09/13/20 15:30 BP 105/69 09/13/20 15:30 Pulse Ox 97 09/13/20 15:30 Weight - Most Recent: 68.492 kg I&O - Last 24 Hours: Intake & Output 09/13/20 09/13/20 09/13/20 06:59 14:59 22:59 Intake Total 1303 Balance 1303 Lab Results Last 24 Hours: Laboratory Results - last 24 hr 09/13/20 09/13/20 09/13/20 Range/Units 11:23 12:01 12:10 WBC 8.4 (4.5-11.0) K/uL RBC 3.70 (3.30-5.50) M/uL Hgb 12.2 (12.0-15.0) g/dL Hct 35.8 L (36.0-48.0) % MCV 97 (80-98) fL MCH 33 H (27-31) pg MCHC 34 (32-36) % Plt Count 177 (150-400) K/uL Neut % (Auto) 71.0 H (36-66) % Lymph % (Auto) 20.3 L (24-44) % [place] % (Auto) 8.1 H (2-6) % Eos % (Auto) 0.4 L (2-4) % Baso % (Auto) 0.2 (0-1) % Sodium (140-148) mmol/L Potassium (3.6-5.2) mmol/L Chloride (100-108) mmol/L Carbon Dioxide (21-32) mmol/L Anion Gap (5.0-14.0) mmol/L BUN (7-18) mg/dL Creatinine (0.6-1.0) mg/dL Est Cr Clr Drug Dosing mL/min Estimated GFR (MDRD) (>60) Glucose (74-106) mg/dL Calcium (8.5-10.1) mg/dL Total Bilirubin (0.2-1.0) mg/dL AST (15-37) U/L ALT (12-78) U/L Alkaline Phosphatase (46-116) U/L Total Protein (6.4-8.2) g/dL Albumin (3.4-5.0) g/dL Globulin (2.3-3.5) g/dL Albumin/Globulin Ratio (1.2-2.2) Urine Color Yellow (YELLOW) Urine Appearance Clear (CLEAR) Urine pH 5.5 (5.0-8.0) Ur Specific [place] 1.015 (1.008-1.030) Urine Protein Negative (NEGATIVE) mg/dL Urine Glucose (UA) Negative (NEGATIVE) mg/dL Urine Ketones Negative (NEGATIVE) mg/dL Urine Occult Blood Negative (NEGATIVE) Urine Nitrite Negative (NEGATIVE) Urine Bilirubin Negative (NEGATIVE) Urine Urobilinogen 0.2 (0.2-1.0) EU/dL Ur Leukocyte Esterase Negative (NEGATIVE) Urine RBC 0-5 (0-5) Urine WBC 0-5 (0-5) Ur Epithelial Cells Moderate Amorphous Sediment Numerous Urine Bacteria Not seen Urine Mucus Not seen Urine Opiates Screen Negative (NEGATIVE) Ur Oxycodone Screen Negative (NEGATIVE) Urine Methadone Screen Negative (NEGATIVE) Ur Propoxyphene Screen Negative (NEGATIVE) Ur Barbiturates Screen Negative (NEGATIVE) Ur Tricyclics Screen Negative (NEGATIVE) Ur Phencyclidine Scrn Negative (NEGATIVE) Ur Amphetamine Screen Negative (NEGATIVE) U Methamphetamines Scrn Negative (NEGATIVE) Urine MDMA Screen Negative (NEGATIVE) U Benzodiazepines Scrn Negative (NEGATIVE) U Cocaine Metab Screen Negative (NEGATIVE) U Marijuana (THC) Screen Negative (NEGATIVE) 09/13/20 Range/Units 12:10 WBC (4.5-11.0) K/uL RBC (3.30-5.50) M/uL Hgb (12.0-15.0) g/dL Hct (36.0-48.0) % MCV (80-98) fL MCH (27-31) pg MCHC (32-36) % Plt Count (150-400) K/uL Neut % (Auto) (36-66) % Lymph % (Auto) (24-44) % [place] % (Auto) (2-6) % Eos % (Auto) (2-4) % Baso % (Auto) (0-1) % Sodium 136 L (140-148) mmol/L Potassium 4.1 (3.6-5.2) mmol/L Chloride 103 (100-108) mmol/L Carbon Dioxide 22 (21-32) mmol/L Anion Gap 15.1 H (5.0-14.0) mmol/L BUN 19 H (7-18) mg/dL Creatinine 0.7 (0.6-1.0) mg/dL Est Cr Clr Drug Dosing 103.73 mL/min Estimated GFR (MDRD) > 60 (>60) Glucose 101 (74-106) mg/dL Calcium 8.9 (8.5-10.1) mg/dL Total Bilirubin 0.5 (0.2-1.0) mg/dL AST 23 (15-37) U/L ALT 19 (12-78) U/L Alkaline Phosphatase 118 H (46-116) U/L Total Protein 6.1 L (6.4-8.2) g/dL Albumin 2.7 L (3.4-5.0) g/dL Globulin 3.4 (2.3-3.5) g/dL Albumin/Globulin Ratio 0.8 L (1.2-2.2) Urine Color (YELLOW) Urine Appearance (CLEAR) Urine pH (5.0-8.0) Ur Specific [place] (1.008-1.030) Urine Protein (NEGATIVE) mg/dL Urine Glucose (UA) (NEGATIVE) mg/dL Urine Ketones (NEGATIVE) mg/dL Urine Occult Blood (NEGATIVE) Urine Nitrite (NEGATIVE) Urine Bilirubin (NEGATIVE) Urine Urobilinogen (0.2-1.0) EU/dL Ur Leukocyte Esterase (NEGATIVE) Urine RBC (0-5) Urine WBC (0-5) Ur Epithelial Cells Amorphous Sediment Urine Bacteria Urine Mucus Urine Opiates Screen (NEGATIVE) Ur Oxycodone Screen (NEGATIVE) Urine Methadone Screen (NEGATIVE) Ur Propoxyphene Screen (NEGATIVE) Ur Barbiturates Screen (NEGATIVE) Ur Tricyclics Screen (NEGATIVE) Ur Phencyclidine Scrn (NEGATIVE) Ur Amphetamine Screen (NEGATIVE) U Methamphetamines Scrn (NEGATIVE) Urine MDMA Screen (NEGATIVE) U Benzodiazepines Scrn (NEGATIVE) U Cocaine Metab Screen (NEGATIVE) U Marijuana (THC) Screen (NEGATIVE) Med Orders - Current: Current Medications Acetaminophen (Acetaminophen 325 Mg Tab, 50 Tab Bulk Bottle) 1 - 2 mg PO Q4H PRN PRN Reason: Pain Benzocaine (Benzocaine 20% Top [place] 56 Gm Bottle) 0 gm TOP Q4H PRN PRN Reason: Other Calcium Carbonate/Glycine (Calcium Carbonate 500 Mg Tab.Chew) 1,000 mg PO Q2H PRN PRN Reason: Indigestion Docusate Sodium (Docusate Sodium 100 Mg Cap) 100 mg PO BID PRN PRN Reason: Constipation Emollient Ointment (Lanolin 100% Cream 40 Gm Tube) 0 gm TOP ASDIRECTED PRN PRN Reason: Other Oxytocin/Sodium Chloride (Pitocin In Ns 20 Units/1,000 Ml) 20 unit in 1,000 mls @ 6 mls/hr IV TITRATE SUMMER; Protocol Last Titration: 09/13/20 18:29 Dose: 6 munits/min, 18 mls/hr Documented by: Penicillin G Potassium 2.5 (millunits/ Sodium Chloride) 50 mls @ 100 mls/hr IV Q4H SUMMER Sodium Chloride (Normal Saline) 1,000 mls @ 0 mls/hr IV ASDIRECTED SUMMER Last Admin: 09/13/20 17:00 Dose: 25 mls/hr Documented by: Ibuprofen (Ibuprofen 200 Mg Tab, 24 Tab Bulk Bottle) 600 mg PO Q6H PRN PRN Reason: Pain Ondansetron HCl (Ondansetron 4 Mg/2 Ml Sdv) 4 mg IV Q4H PRN PRN Reason: Nausea/Vomiting Sodium Chloride (Sodium Chloride 0.9% 10 Ml Syringe) 10 ml FLUSH ASDIRECTED PRN PRN Reason: Keep Vein Open Witch Kathy (Witch Kathy Medicated Pads 100/Jar) 1 pad TOP ASDIRECTED PRN PRN Reason: Other Discontinued Medications Oxytocin/Sodium Chloride (Pitocin In Ns 20 Units/1,000 Ml) Confirm Administered Dose 20 unit in 1,000 mls @ as directed .ROUTE .STK-MED ONE Stop: 09/13/20 12:07 Last Admin: 09/13/20 12:26 Dose: Not Given Documented by: Penicillin G Potassium 5 (millunits/ Sodium Chloride) 100 mls @ 200 mls/hr IV ONETIME ONE Stop: 09/13/20 16:59 Last Admin: 09/13/20 16:41 Dose: 200 mls/hr Documented by: Sodium Chloride (Normal Saline) 1,000 mls @ 500 mls/hr IV .BOLUS ONE Stop: 09/13/20 18:59 Last Infusion: 09/13/20 17:00 Dose: Infused Documented by: - Exam General: Alert, Oriented HEENT: Pupils Equal, Pupils Reactive, EOMI, Mucous Membr. Moist/[place] Neck: Supple Lungs: Clear to Auscultation, Normal Respiratory Effort Cardiovascular: Regular Rate, Regular Rhythm GI/Abdominal Exam: Normal Bowel Sounds, Soft, Non-Tender, No Mass, Pelvis Stable (Female) Exam: Normal External Exam, Normal Bimanual Exam, Cervical Dilatation, Enlarged Uterus, Vaginal Bleeding Back Exam: Normal Inspection, Full Range of Motion Extremities: Normal Inspection, Normal Range of Motion, Non-Tender, No Pedal Edema, Normal Capillary Refill Skin: Warm, Dry, Intact Neurological: No New Focal Deficit Psy/Mental Status: Alert, Normal Affect, Normal Mood - Problem List & Annotations (1) Term SNOMED Code(s): 75153644 Code(s): Z34.90 - ENCNTR FOR SUPRVSN OF NORMAL , UNSP, UNSP TRIMESTER Status: Acute Current Visit: Yes (2) Vaginal delivery SNOMED Code(s): 805836002 Code(s): O80 - ENCOUNTER FOR FULL-TERM UNCOMPLICATED DELIVERY Status: Acute Current Visit: No - Problem List Review Problem List Initiated/Reviewed/Updated: Yes - My Orders Last 24 Hours: My Active Orders 09/13/20 11:15 OB Check [OM.PC] Click to Edit 09/13/20 11:58 Peripheral IV Care [RC] . DIRECTED Sodium Chloride 0.9% [Saline Flush] 10 ml FLUSH ASDIRECTED PRN Peripheral IV Insertion Adult [OM.PC] Routine 09/13/20 12:01 Patient Status [ADT] Routine Communication Order [RC] ASDIRECTED Non Stress Test [RC] Click to Edit Notify Provider [RC] PRN Up ad Kaylene [RC] ASDIRECTED Vital Signs [RC] PER UNIT ROUTINE Calcium Carbonate [Tums] 1,000 mg PO Q2H PRN Ondansetron [Zofran] 4 mg IV Q4H PRN DVT/VTE Prophylaxis Reflex [OM.PC] Routine Saline Lock Insert [OM.PC] Routine Resuscitation Status Routine 09/13/20 12:02 Notify Provider Vital Signs [RC] PRN VTE/DVT Education [RC] Click to Edit 09/13/20 12:15 Oxytocin/Normal Saline [Pitocin in NS 20 Units/1,000 ML] 20 unit in 1,000 ml IV TITRATE 09/13/20 13:28 Communication Order [RC] Per Unit Routine Communication Order [RC] Per Unit Routine Communication Order [RC] Per Unit Routine Communication Order [RC] Per Unit Routine Nitrous Oxide Delivery [RC] ASDIRECTED Oxygen Therapy [RC] ASDIRECTED Pulse Oximetry [RC] ASDIRECTED Verify Patient Consent Obtain [RC] ASDIRECTED Vital Signs [RC] PER UNIT ROUTINE Medication Discontinuation Instructions [OM.PC] Routine 09/13/20 Dinner Regular Diet [DIET] 09/13/20 17:30 Sodium Chloride 0.9% [Normal Saline] 1,000 ml IV ASDIRECTED 09/13/20 19:18 Patient Status [ADT] Routine Vital Signs [RC] PFP Consult to Nuclear Medicine Chief Technologist [CONS] Routine Benzocaine [Yajn-F-Ppskbaf 20% [place]] 0 gm TOP Q4H PRN Docusate Sodium [Colace] 100 mg PO BID PRN Lanolin [Lansinoh HPA] 0 gm TOP ASDIRECTED PRN witch Kathy [Tucks] 1 pad TOP ASDIRECTED PRN Assess Lochia [WOMSER] Per Unit Routine Assess Uterine Involution [WOMSER] Per Unit Routine 09/13/20 19:20 Ice Therapy [OM.PC] Per Unit Routine Perineal Care [OM.PC] Per Unit Routine Sitz Bath [OM.PC] Per Unit Routine 09/13/20 19:23 Acetaminophen [Tylenol Bulk Bottle] 1 - 2 mg PO Q4H PRN Ibuprofen [Motrin Bulk Bottle] 600 mg PO Q6H PRN 09/13/20 20:30 Penicillin G Potassium [Pfizerpen] 2.5 millunits Sodium Chloride 0.9% [Normal Saline] 50 ml IV Q4H 09/14/20 05:11 CBC WITH AUTO DIFF [HEME] AM - Assessment Assessment:: 09/13/20 with at 1900 Delivered at 39 3/7 weeks FF bleeding light, EBL 200 ml Plans to formula feed Perineum intact - Plan Plan:: 09/13/20 Assessment: here at 39 3/7 weeks with advanced cervical dilation GBS negative rubella immune Hgb 12.2 SVE in clinic , currently 7/90/-1 Category 1 tracing Plan: Pitocin titrate started AROM for clear fluid Nitrous oxide being used Anticipate 09/13/20 Routine cares Anticipate 24-48 hour stay
[2020-09-13] MEDS ORDERED: Penicillin G Potassium 2.5 MILLUNITS in Sodium Chloride 0.9% 50 ML IV SCH (20:30)
--- NOTE | 2020-09-14 08:03 | PCM.PNPP ---
- General Info Date of Service: 09/14/20 Functional Status: Reports: Pain Controlled - Review of Systems General: Reports: No Symptoms HEENT: Reports: No Symptoms Pulmonary: Reports: No Symptoms Cardiovascular: Reports: No Symptoms Gastrointestinal: Reports: No Symptoms Genitourinary: Reports: No Symptoms Musculoskeletal: Reports: No Symptoms Skin: Reports: No Symptoms Neurological: Reports: No Symptoms Psychiatric: Reports: No Symptoms - General Info Date of Service: 09/14/20 - Patient Data Vital Signs - Most Recent: Last Vital Signs Temp 36.9 C 09/14/20 07:39 Pulse 82 09/14/20 07:39 Resp 18 09/14/20 07:39 BP 104/62 09/14/20 07:39 Pulse Ox 98 09/14/20 07:39 Weight - Most Recent: 68.492 kg I&O - Last 24 Hours: Intake & Output 09/13/20 09/14/20 09/14/20 22:59 06:59 14:59 Intake Total 2303 Balance 2303 Lab Results - Last 24 Hours: Laboratory Results - last 24 hr 09/13/20 09/13/20 09/13/20 Range/Units 11:23 12:01 12:10 WBC 8.4 (4.5-11.0) K/uL RBC 3.70 (3.30-5.50) M/uL Hgb 12.2 (12.0-15.0) g/dL Hct 35.8 L (36.0-48.0) % MCV 97 (80-98) fL MCH 33 H (27-31) pg MCHC 34 (32-36) % Plt Count 177 (150-400) K/uL Neut % (Auto) 71.0 H (36-66) % Lymph % (Auto) 20.3 L (24-44) % [place] % (Auto) 8.1 H (2-6) % Eos % (Auto) 0.4 L (2-4) % Baso % (Auto) 0.2 (0-1) % Sodium (140-148) mmol/L Potassium (3.6-5.2) mmol/L Chloride (100-108) mmol/L Carbon Dioxide (21-32) mmol/L Anion Gap (5.0-14.0) mmol/L BUN (7-18) mg/dL Creatinine (0.6-1.0) mg/dL Est Cr Clr Drug Dosing mL/min Estimated GFR (MDRD) (>60) Glucose (74-106) mg/dL Calcium (8.5-10.1) mg/dL Total Bilirubin (0.2-1.0) mg/dL AST (15-37) U/L ALT (12-78) U/L Alkaline Phosphatase (46-116) U/L Total Protein (6.4-8.2) g/dL Albumin (3.4-5.0) g/dL Globulin (2.3-3.5) g/dL Albumin/Globulin Ratio (1.2-2.2) Urine Color Yellow (YELLOW) Urine Appearance Clear (CLEAR) Urine pH 5.5 (5.0-8.0) Ur Specific [place] 1.015 (1.008-1.030) Urine Protein Negative (NEGATIVE) mg/dL Urine Glucose (UA) Negative (NEGATIVE) mg/dL Urine Ketones Negative (NEGATIVE) mg/dL Urine Occult Blood Negative (NEGATIVE) Urine Nitrite Negative (NEGATIVE) Urine Bilirubin Negative (NEGATIVE) Urine Urobilinogen 0.2 (0.2-1.0) EU/dL Ur Leukocyte Esterase Negative (NEGATIVE) Urine RBC 0-5 (0-5) Urine WBC 0-5 (0-5) Ur Epithelial Cells Moderate Amorphous Sediment Numerous Urine Bacteria Not seen Urine Mucus Not seen Urine Opiates Screen Negative (NEGATIVE) Ur Oxycodone Screen Negative (NEGATIVE) Urine Methadone Screen Negative (NEGATIVE) Ur Propoxyphene Screen Negative (NEGATIVE) Ur Barbiturates Screen Negative (NEGATIVE) Ur Tricyclics Screen Negative (NEGATIVE) Ur Phencyclidine Scrn Negative (NEGATIVE) Ur Amphetamine Screen Negative (NEGATIVE) U Methamphetamines Scrn Negative (NEGATIVE) Urine MDMA Screen Negative (NEGATIVE) U Benzodiazepines Scrn Negative (NEGATIVE) U Cocaine Metab Screen Negative (NEGATIVE) U Marijuana (THC) Screen Negative (NEGATIVE) 09/13/20 09/14/20 Range/Units 12:10 06:13 WBC 11.3 H (4.5-11.0) K/uL RBC 3.49 (3.30-5.50) M/uL Hgb 11.5 L (12.0-15.0) g/dL Hct 34.3 L (36.0-48.0) % MCV 98 (80-98) fL MCH 33 H (27-31) pg MCHC 34 (32-36) % Plt Count 151 (150-400) K/uL Neut % (Auto) 65.3 (36-66) % Lymph % (Auto) 24.5 (24-44) % [place] % (Auto) 9.1 H (2-6) % Eos % (Auto) 1.0 L (2-4) % Baso % (Auto) 0.1 (0-1) % Sodium 136 L (140-148) mmol/L Potassium 4.1 (3.6-5.2) mmol/L Chloride 103 (100-108) mmol/L Carbon Dioxide 22 (21-32) mmol/L Anion Gap 15.1 H (5.0-14.0) mmol/L BUN 19 H (7-18) mg/dL Creatinine 0.7 (0.6-1.0) mg/dL Est Cr Clr Drug Dosing 103.73 mL/min Estimated GFR (MDRD) > 60 (>60) Glucose 101 (74-106) mg/dL Calcium 8.9 (8.5-10.1) mg/dL Total Bilirubin 0.5 (0.2-1.0) mg/dL AST 23 (15-37) U/L ALT 19 (12-78) U/L Alkaline Phosphatase 118 H (46-116) U/L Total Protein 6.1 L (6.4-8.2) g/dL Albumin 2.7 L (3.4-5.0) g/dL Globulin 3.4 (2.3-3.5) g/dL Albumin/Globulin Ratio 0.8 L (1.2-2.2) Urine Color (YELLOW) Urine Appearance (CLEAR) Urine pH (5.0-8.0) Ur Specific [place] (1.008-1.030) Urine Protein (NEGATIVE) mg/dL Urine Glucose (UA) (NEGATIVE) mg/dL Urine Ketones (NEGATIVE) mg/dL Urine Occult Blood (NEGATIVE) Urine Nitrite (NEGATIVE) Urine Bilirubin (NEGATIVE) Urine Urobilinogen (0.2-1.0) EU/dL Ur Leukocyte Esterase (NEGATIVE) Urine RBC (0-5) Urine WBC (0-5) Ur Epithelial Cells Amorphous Sediment Urine Bacteria Urine Mucus Urine Opiates Screen (NEGATIVE) Ur Oxycodone Screen (NEGATIVE) Urine Methadone Screen (NEGATIVE) Ur Propoxyphene Screen (NEGATIVE) Ur Barbiturates Screen (NEGATIVE) Ur Tricyclics Screen (NEGATIVE) Ur Phencyclidine Scrn (NEGATIVE) Ur Amphetamine Screen (NEGATIVE) U Methamphetamines Scrn (NEGATIVE) Urine MDMA Screen (NEGATIVE) U Benzodiazepines Scrn (NEGATIVE) U Cocaine Metab Screen (NEGATIVE) U Marijuana (THC) Screen (NEGATIVE) Med Orders - Current: Current Medications Acetaminophen (Acetaminophen 325 Mg Tab, 50 Tab Bulk Bottle) 1 - 2 mg PO Q4H PRN PRN Reason: Pain Benzocaine (Benzocaine 20% Top [place] 56 Gm Bottle) 0 gm TOP Q4H PRN PRN Reason: Other Calcium Carbonate/Glycine (Calcium Carbonate 500 Mg Tab.Chew) 1,000 mg PO Q2H PRN PRN Reason: Indigestion Docusate Sodium (Docusate Sodium 100 Mg Cap) 100 mg PO BID PRN PRN Reason: Constipation Emollient Ointment (Lanolin 100% Cream 40 Gm Tube) 0 gm TOP ASDIRECTED PRN PRN Reason: Other Oxytocin/Sodium Chloride (Pitocin In Ns 20 Units/1,000 Ml) 20 unit in 1,000 mls @ 6 mls/hr IV TITRATE SUMMER; Protocol Last Titration: 09/13/20 18:29 Dose: 6 munits/min, 18 mls/hr Documented by: Sodium Chloride (Normal Saline) 1,000 mls @ 0 mls/hr IV ASDIRECTED SUMMER Last Admin: 09/13/20 17:00 Dose: 25 mls/hr Documented by: Ibuprofen (Ibuprofen 200 Mg Tab, 24 Tab Bulk Bottle) 600 mg PO Q6H PRN PRN Reason: Pain Last Admin: 09/13/20 20:04 Dose: 600 mg Documented by: Ondansetron HCl (Ondansetron 4 Mg/2 Ml Sdv) 4 mg IV Q4H PRN PRN Reason: Nausea/Vomiting Sodium Chloride (Sodium Chloride 0.9% 10 Ml Syringe) 10 ml FLUSH ASDIRECTED PRN PRN Reason: Keep Vein Open Witch Kathy (Witch Kathy Medicated Pads 100/Jar) 1 pad TOP ASDIRECTED PRN PRN Reason: Other Discontinued Medications Oxytocin/Sodium Chloride (Pitocin In Ns 20 Units/1,000 Ml) Confirm Administered Dose 20 unit in 1,000 mls @ as directed .ROUTE .STK-MED ONE Stop: 09/13/20 12:07 Last Admin: 09/13/20 12:26 Dose: Not Given Documented by: Penicillin G Potassium 5 (millunits/ Sodium Chloride) 100 mls @ 200 mls/hr IV ONETIME ONE Stop: 09/13/20 16:59 Last Admin: 09/13/20 16:41 Dose: 200 mls/hr Documented by: Penicillin G Potassium 2.5 (millunits/ Sodium Chloride) 50 mls @ 100 mls/hr IV Q4H SUMMER Sodium Chloride (Normal Saline) 1,000 mls @ 500 mls/hr IV .BOLUS ONE Stop: 09/13/20 18:59 Last Infusion: 09/13/20 17:00 Dose: Infused Documented by: - Interaction Disposition, : in Room with Family Infant Interaction: Holding Infant Feeding: Bottle Fed Support Person: - Recovery Exam Fundal Tone: Firm Fundal Level: 1 Fingerbreadths Above Umbilicus Fundal Placement: Midline Lochia Amount: Small Lochia Color: Rubra/Red Perineum Description: Intact, Minimal Bruising/Swelling Episiotomy/Laceration: None Bladder Status: Voiding Urinary Elimination: Voided - Exam General: Alert, Oriented, Cooperative HEENT: Pupils Equal, Pupils Reactive, EOMI, Mucous Membr. Moist/[place] Neck: Supple Lungs: Clear to Auscultation, Normal Respiratory Effort Cardiovascular: Regular Rate, Regular Rhythm GI/Abdominal Exam: Normal Bowel Sounds, Soft, Non-Tender, No Organomegaly, No Distention, No Abnormal Bruit, No Mass, Pelvis Stable Extremities: Normal Inspection, Normal Range of Motion, Non-Tender, No Pedal Edema, Normal Capillary Refill Skin: Warm, Dry, Intact Neurological: No New Focal Deficit Psy/Mental Status: Alert, Normal Affect, Normal Mood - Problem List & Annotations (1) Normal labor and delivery SNOMED Code(s): 21675745, 81090971 Code(s): O80 - ENCOUNTER FOR FULL-TERM UNCOMPLICATED DELIVERY Status: Acute Current Visit: No (2) SNOMED Code(s): 35557975 Code(s): Z33.1 - STATE, INCIDENTAL Status: Acute Current Visit: No Qualifiers: Weeks of gestation: 39 weeks Qualified Code(s): Z3A.39 - 39 weeks gestation of (3) Vaginal delivery SNOMED Code(s): 828883350 Code(s): O80 - ENCOUNTER FOR FULL-TERM UNCOMPLICATED DELIVERY Status: Acute Current Visit: No - Problem List Review Problem List Initiated/Reviewed/Updated: Yes - Assessment Assessment:: 09/13/20 with at 1900 Delivered at 39 3/7 weeks FF bleeding light, EBL 200 ml Plans to formula feed Perineum intact 09/14/2020 without complications day one Fundus firm and bleeding decreasing Hgb 11.5 Voiding and passing gas desires discharge home at 24 hours - Plan Plan:: 09/13/20 Assessment: here at 39 3/7 weeks with advanced cervical dilation GBS negative rubella immune Hgb 12.2 SVE in clinic /, currently Category 1 tracing Plan: Pitocin titrate started AROM for clear fluid Nitrous oxide being used Anticipate 09/13/20 Routine cares Anticipate 24-48 hour stay 09/14/2020 Continue routine cares Discharge home at 24 hrs To see Margaret in six weeks for visit
[2020-09-14 15:10] VITALS: BP 105/70; PULSE 57
== END 2020-09-14 20:26 | disposition home or self-care (01) | DRG 560 ==
LOC: JP.OBCHECK 11:07 → JP.OB 12:01 → OBSVTOIN 19:00 → JP.OB 19:00 → JP.MS 21:00
PROVIDERS: ADMIT Advanced Practice Midwife; ATTEND Advanced Practice Midwife
PROC: 10E0XZZ Delivery of Products of Conception, External Approach (ICD-10-PCS; principal; 2020-09-13)
PROC: 10907ZC Drainage of Amniotic Fluid, Therapeutic from Products of Conception, Via Natural or Artificial Opening (ICD-10-PCS; 2020-09-13)
DX: O99.824 Streptococcus B carrier state complicating childbirth (principal); Z3A.39 39 weeks gestation of pregnancy; Z37.0 Single live birth
CPT/HCPCS: 36415; 80053; 80305-QW; 81001; 85025; 99211; A9270-GY; J2540; J2590; J7030